=== PATIENT | male | born 1975 | race Two or more races ===

== ENCOUNTER 2016-07-16 16:25 | Inpatient (IN) | payer OTHER ==
[2016-07-16 17:21] VITALS: BMI 25.7
--- NOTE | 2016-07-16 18:00 | HP ---
[id number] 4d 4-Moderate,w/Arms Extend Anxiety: 4-Mod. Anxious/Guarded Agitation: 4-Moderately Restless Paroxysmal Sweats: 2 Orientation: 1-Uncertain about Date Tacttile Disturbances: 0-None Auditory Disturbances: 0-None Visual Disturbances: 0-None Headache: 1-Very Mild CIWA-Ar Total Score: 17 Admission ROS BHS - HPI Chief Complaint: withdrawal sx Allergies/Adverse Reactions: Allergies Allergy/AdvReac Type Severity Reaction Status Date / Time No Known Drug Allergies Allergy Verified 07/16/16 19:24 PICKLES Allergy Severe Hives Uncoded 07/16/16 18:44 History of Present Illness: 40 years old male with long history of alcohol cocaine marijuana nicotine dependence has hiv and positive ppd and history of anemia, has depression is admitted to detox Exam Limitations: No Limitations - Ebola screening Have you traveled outside of the country in the last 21 days: No Have you had contact with anyone from an Ebola affected area: No Have you been sick,other than usual withdrawal symptoms: No Do you have a fever: No - Review of Systems Constitutional: Chills, Loss of Appetite, Changes in sleep, Unintentional Wgt. Loss, Unexplained wgt Loss EENT: reports: No Symptoms Reported Respiratory: reports: No Symptoms reported Cardiac: reports: No Symptoms Reported GI: reports: Nausea, Poor Appetite, Poor Fluid Intake, Abdominal cramping : reports: No Symptoms Reported Musculoskeletal: reports: Back Pain, Joint Pain, Muscle Pain, Neck Pain Integumentary: reports: No Symptoms Reported Neuro: reports: Tremors Endocrine: reports: No Symptoms Reported Hematology: reports: Anemia Psychiatric: reports: Judgement Intact, Depressed Other Systems: Reviewed and Negative Patient History - Patient Medical History Hx Anemia: Yes (lab pending) Hx Asthma: No Hx Chronic Obstructive Pulmonary Disease (COPD): No Hx Cancer: No Hx Cardiac Disorders: No Hx Congestive Heart Failure: No Hx Hypertension: No Hx Hypercholesterolemia: No Hx Pacemaker: No HX Cerebrovascular Accident: No Hx Seizures: No Hx Dementia: No Hx Diabetes: No Hx Gastrointestinal Disorders: No Hx Liver Disease: No Hx Genitourinary Disorders: No Hx Sexually Transmitted Disorders: No Hx Renal Disease (ESRD): No Hx Thyroid Disease: No Hx Human Immunodeficiency Virus (HIV): Yes Hx Hepatitis C: No Hx Depression: Yes Hx Suicide Attempt: No Hx Bipolar Disorder: No Hx Schizophrenia: No - Patient Surgical History Past Surgical History: No - PPD History Previous Implant?: Yes Documented Results: Positive w/o proof Implanted On Prior [facility] Admission?: No PPD to be Administered?: No - Smoking Cessation Smoking history: Current every day smoker Have you smoked in the past 12 months: Yes Aproximately how many cigarettes per day: 15 Cigars Per Day: 0 Hx Chewing Tobacco Use: No Initiated information on smoking cessation: Yes 'Breaking Loose' booklet given: 07/16/16 - Substance & Tx. History Hx Alcohol Use: Yes Hx Substance Use: Yes Substance Use Type: Alcohol, Marijuana Hx Substance Use Treatment: Yes - Substances Abused Alcohol Route: Oral Frequency: Daily Amount used: Shoppilot Age of first use: 15 Date of Last Use: 07/16/16 Family Disease History - Family Disease History Family Disease History: CA: Father (), Other: Father Admission Physical Exam BHS - Vital Signs Vital Signs: Vital Signs - 24 hr 07/16/16 17:17 Temperature 97.9 F Pulse Rate 96 H Respiratory 20 Rate Blood Pressure 122/70 - Physical General Appearance: Yes: Appropriately Dressed, Moderate Distress, Thin, Tremorous, Irritable, Sweating, Anxious HEENTM: Yes: Hearing grossly Normal, Normal ENT Inspection, Normocephalic, Normal Voice Respiratory: Yes: Chest Non-Tender, Lungs Clear, Normal Breath Sounds, No Respiratory Distress, No Accessory Muscle Use Neck: Yes: Supple, Trachea in good position Breast: Yes: Breasts Symetrical Cardiology: Yes: Regular Rhythm, S1, S2, Tachycardia Abdominal: Yes: Non Tender, Soft Genitourinary: Yes: Within Normal Limits Back: Yes: Normal Inspection Musculoskeletal: Yes: full range of Motion, Gait Steady, Back pain Extremities: Yes: Normal Inspection, Normal Range of Motion, Non-Tender, Tremors Neurological: Yes: Alert, Motor Strength 5/5, Normal Response, Depressed Affect Integumentary: Yes: Warm Lymphatic: Yes: Within Normal Limits - Diagnostic (1) Alcohol dependence with uncomplicated withdrawal Current Visit: Yes Status: Acute (2) HIV (human immunodeficiency virus infection) Current Visit: Yes Status: Chronic Comment: family will bring in medication as soon as possible, last dose 07/16/16 (3) Positive PPD, treated Current Visit: Yes Status: Resolved (4) Nicotine dependence Current Visit: Yes Status: Acute Qualifiers: Nicotine product type: cigarettes Substance use status: in withdrawal Qualified Code(s): F17.213 - Nicotine dependence, cigarettes, with withdrawal (5) Weight loss Current Visit: Yes Status: Acute Cleared for Admission [facility] - Detox or Rehab [facility] Level of Care: Medically Managed Detox Regimen/Protocol: Librium [facility] Breath Alcohol Content Breath Alcohol Content: 0 Urine Drug Screen - Results Drug Screen Negative: No Urine Drug Screen Results: THC-Marijuana, BRITTANEY-Cocaine
[2016-07-16] MEDS ORDERED: MAGNESIUM HYDROX 2400MG/30ML ORAL SUSPENSION 30 ML CUP PO PRN (18:05)
[2016-07-16] MEDS ORDERED: chlordiazePOXIDE HCL 25 MG CAPSULE PO ONE (18:05)
[2016-07-16] MEDS ORDERED: MENTHOL/PHENOL 1 EACH UD MM PRN (18:05)
[2016-07-16] MEDS ORDERED: LOPERAMIDE HCL 2 MG CAPSULE PO PRN (18:05)
[2016-07-16] MEDS ORDERED: ACETAMINOPHEN 325 MG TABLET (FP) PO PRN (18:05)
[2016-07-16] MEDS ORDERED: MAGNESIUM CITRATE 300 ML BOTTLE PO PRN (18:05)
[2016-07-16] MEDS ORDERED: MAG HYDROX/AL HYDROX/SIMETH 30 ML UNIT-DOSE CUP PO PRN (18:05)
[2016-07-16] MEDS ORDERED: diphenhydrAMINE HCL 50 MG CAPSULE PO PRN (18:05)
[2016-07-16] MEDS ORDERED: IBUPROFEN 400 MG TABLET (FP) PO PRN (18:05)
[2016-07-16] MEDS ORDERED: chlordiazePOXIDE HCL 25 MG CAPSULE PO PRN (18:05)
[2016-07-16] MEDS ORDERED: P-EPHED 60MG/TRIPROLIDI 2.5MG TABLET PO PRN (18:05)
[2016-07-16] MEDS: THIAMINE HCL 100 MG TABLET (FP) PO SCH (22:41)
[2016-07-16] MEDS: chlordiazePOXIDE HCL 25 MG CAPSULE PO SCH (22:41)
[2016-07-17] MEDS: chlordiazePOXIDE HCL 25 MG CAPSULE PO SCH ×4 (07:24→22:41)
--- NOTE | 2016-07-17 10:14 | CONSULT ---
[facility] Psychiatric Consult - Data Date of interview: 07/17/16 Admission source: [facility] Identifying data: This is 40 years old male with psychiatric hospitalization history biontoxicate dwith: Alcohol and Nicotine Substance Abuse History: - Smoking Cessation. Smoking history: Current every day smoker. Have you smoked in the past 12 months: Yes. Aproximately how many cigarettes per day: 15. Cigars Per Day: 0. Hx Chewing Tobacco Use: No. Initiated information on smoking cessation: Yes. 'Breaking Loose' booklet given : 07/16/16. - Substance & Tx. History. Hx Alcohol Use: Yes. Hx Substance Use : Yes. Substance Use Type: Alcohol, Marijuana. Hx Substance Use Treatment: Yes. - Substances Abused. Alcohol. Route: Oral. Frequency: Daily. Amount used: gallon rum. Age of first use: 15. Date of Last Use: 07/16/16 Medical History: Weight loss history, HIV Psychiatric History: Patient reprots history of depression and IOnsoknia, reprotws taking prior to admission: Ambien 10mmg po qhs with good response Physical/Sexual Abuse/Trauma History: Denies Additional Comment: Ambien 10mmg po qhs Mental Status Exam - Mental Status Exam Alert and Oriented to: Person Cognitive Function: Fair Patient Appearance: Unkempt Mood: Anxious Affect: Mood Congruent Patient Behavior: Cooperative Speech Pattern: Appropriate Voice Loudness: Mildly Soft/Quiet Thought Process: Circumstantial Thought Disorder: Being Controlled Hallucinations: Denies Suicidal Ideation: Denies Homicidal Ideation: Denies Insight/Judgement: Fair Sleep: Difficulty falling asleep Appetite: Weight loss Muscle strength/Tone: Mild Hypotonicity Gait/Station: Shuffling Additional Comments: Ambien 10mmg po qhs Psychiatric Findings - Problem List ([place] 1, 2,3) (1) Alcohol dependence with uncomplicated withdrawal Current Visit: Yes Status: Acute (2) Nicotine dependence Current Visit: Yes Status: Acute Qualifiers: Nicotine product type: cigarettes Substance use status: in withdrawal Qualified Code(s): F17.213 - Nicotine dependence, cigarettes, with withdrawal (3) Drug-induced mood disorder Current Visit: Yes Status: Acute (4) Alcohol induced insomnia Current Visit: Yes Status: Acute - Initial Treatment Plan Initial Treatment Plan: Ambien 10mmg po qhs
[2016-07-17] MEDS: PRENATAL VITAMINS W/ FOLIC ACID TABLET (FP) PO SCH (10:23)
[2016-07-17] MEDS: NICOTINE 21 MG/24 HOURS TOPICAL PATCH TD SCH (10:24)
[2016-07-17 10:32] LABS: MCH 31.5 pg (25.7-33.7); MCHC 33.5 g/dl (32.0-35.9); MEAN PLT VOLUME 9.1 fl (7.5-11.1); PLATELET COUNT 210 K/MM3 (134-434); RDW 13.1 % (11.9-15.9); WHITE BLOOD COUNT 7.6 K/mm3 (4.0-10.0)
[2016-07-17 10:48] LABS: ALBUMIN 3.6 g/dl (3.4-5.0); ALK PHOS 104 U/L (45-117); ANION GAP 10 (8-16); BILIRUBIN,TOTAL 0.5 mg/dL (0.2-1.0); CALCIUM 9.7 mg/dL (8.5-10.1); CO2 29 mmol/L (21-32); COCKROFT - GAULT 102.37; CREATININE 1.2 mg/dL (0.7-1.3); GLUCOSE,RANDOM 95 mg/dL (74-106); SGOT/AST 21 U/L (15-37); SGPT/ALT 22 U/L (12-78); TOT PROT 7.4 g/dl (6.4-8.2)
[2016-07-17] MEDS ORDERED: LIDOCAINE 5% TOPICAL PATCH TP ONE (11:28)
[2016-07-17] MEDS: guaiFENesin/D-METHORPHAN HB 10 ML UNIT-DOSE CUPS PO PRN ×2 (11:36→23:17)
[2016-07-17] MEDS: NICOTINE POLACRILEX 4 MG GUM BC PRN ×2 (12:19→23:26)
--- NOTE | 2016-07-17 13:03 | PN ---
S CIWA - CIWA Score Nausea/Vomitin Muscle Tremors: 2 Anxiety: 2 Agitation: 3 Paroxysmal Sweats: 2 Orientation: 0-Oriented Tacttile Disturbances: 1-Very Mild Itch/Numbness Auditory Disturbances: 0-None Visual Disturbances: 0-None Headache: 0-None Present CIWA-Ar Total Score: 12 BHS Progress Note (SOAP) Subjective: restless, anxious, night sweats, lbp, but better Objective: 07/17/16 13:01 Vital Signs Temp 97.9 F 07/17/16 09:40 Pulse 94 H 07/17/16 09:40 Resp 16 07/17/16 09:40 BP 130/70 07/17/16 09:40 Pulse Ox Intake & Output 07/16/16 07/17/16 07/17/16 23:59 11:59 23:59 Weight 195 lb Other: Height 6 ft 1 in Body Mass Index (BMI) 25.7 Weight Measurement Method Standing Scale Laboratory Tests 07/17/16 07/17/16 07/17/16 07:00 07:00 07:00 WBC 7.6 D RBC 4.93 Hgb 15.5 D Hct 46.3 MCV 94.0 MCHC 33.5 RDW 13.1 D Plt Count 210 D MPV 9.1 D Sodium 141 Potassium 4.1 Chloride 102 Carbon Dioxide 29 D Anion Gap 10 BUN 13 Creatinine 1.2 D Creat Clearance w eGFR > 60 Random Glucose 95 D Calcium 9.7 Total Bilirubin 0.5 D AST 21 D ALT 22 D Alkaline Phosphatase 104 Total Protein 7.4 Albumin 3.6 RPR Titer Nonreactive pt aox3 ambulating mildly restless. Assessment: 07/17/16 13:02 withdrawal sx;s lbp 07/17/16 13:03 Plan: cont. detox increase fluids lidocaine patch
--- NOTE | 2016-07-17 13:23 | EKG ---
Test Reason : Blood Pressure : / mmHG Vent. Rate : 086 BPM Atrial Rate : 086 BPM P-R Int : 156 ms QRS Dur : 090 ms QT Int : 334 ms P-R-T Axes : 064 069 004 degrees QTc Int : 399 ms NORMAL SINUS RHYTHM POSSIBLE LEFT ATRIAL ENLARGEMENT LEFT VENTRICULAR HYPERTROPHY NONSPECIFIC T WAVE ABNORMALITY ABNORMAL ECG NO PREVIOUS ECGS AVAILABLE Confirmed by NIKKI RAMIREZ MD ([id number]) on 07/17/2016 1:22:52 PM Referred By: Confirmed By:NIKKI RAMIREZ MD
[2016-07-17 16:35] LABS: URINE APPEARANCE CLEAR; URINE BILIRUBIN NEGATIVE (NEGATIVE); URINE BLOOD NEGATIVE (NEGATIVE); URINE COLOR YELLOW; URINE GLUCOSE (UA) NEGATIVE (NEGATIVE); URINE KETONE NEGATIVE (NEGATIVE); URINE LEUK ESTERASE NEGATIVE (NEGATIVE); URINE NITRITE NEGATIVE (NEGATIVE); URINE UROBILINOGEN NEGATIVE E.U./dl (0.2-1.0)
[2016-07-17 16:59] LABS: URINE PROTEIN 1+ (NEGATIVE)
[2016-07-17 17:11] LABS: URINE MUCUS RARE; URINE RBC 1 /hpf (0-3); URINE WBC 1 /hpf (3-5)
[2016-07-17] MEDS: ZOLPIDEM TARTRATE 10 MG TABLET (PARK CARE ONLY) PO PRN (22:41)
[2016-07-17] MEDS: THIAMINE HCL 100 MG TABLET (FP) PO SCH (22:41)
[2016-07-18] MEDS: chlordiazePOXIDE HCL 25 MG CAPSULE PO SCH ×3 (05:52→17:44)
[2016-07-18] MEDS: guaiFENesin/D-METHORPHAN HB 10 ML UNIT-DOSE CUPS PO PRN (09:08)
[2016-07-18] MEDS: PRENATAL VITAMINS W/ FOLIC ACID TABLET (FP) PO SCH (10:30)
[2016-07-18] MEDS: LIDOCAINE 5% TOPICAL PATCH TP SCH (10:31)
[2016-07-18] MEDS: NICOTINE 21 MG/24 HOURS TOPICAL PATCH TD SCH (10:31)
--- NOTE | 2016-07-18 11:05 | PN ---
S CIWA - CIWA Score Nausea/Vomitin-No Nausea/No Vomiting Muscle Tremors: 3 Anxiety: 2 Agitation: 2 Paroxysmal Sweats: 2 Orientation: 0-Oriented Tacttile Disturbances: 0-None Auditory Disturbances: 0-None Visual Disturbances: 0-None Headache: 0-None Present CIWA-Ar Total Score: 9 BHS Progress Note (SOAP) Subjective: little anxious feeling better Objective: 07/18/16 11:04 Vital Signs Temperature 97.6 F 07/18/16 09:27 Pulse Rate 96 H 07/18/16 09:27 Respiratory Rate 20 07/18/16 09:27 Blood Pressure 112/59 07/18/16 09:27 O2 Sat by Pulse Oximetry (%) Laboratory Tests 07/16/16 07/17/16 07/17/16 07:00 07:00 07:00 WBC 7.6 D RBC 4.93 Hgb 15.5 D Hct 46.3 MCV 94.0 MCHC 33.5 RDW 13.1 D Plt Count 210 D MPV 9.1 D Sodium 141 Potassium 4.1 Chloride 102 Carbon Dioxide 29 D Anion Gap 10 BUN 13 Creatinine 1.2 D Creat Clearance w eGFR > 60 Random Glucose 95 D Calcium 9.7 Total Bilirubin 0.5 D AST 21 D ALT 22 D Alkaline Phosphatase 104 Total Protein 7.4 Albumin 3.6 Urine Color Urine Appearance Urine pH Ur Specific [place] Urine Protein Urine Glucose (UA) Urine Ketones Urine Blood Urine Nitrite Urine Bilirubin Urine Urobilinogen Ur Leukocyte Esterase Urine RBC Urine WBC Urine Mucus RPR Titer Hepatitis C Antibody <0.1 07/17/16 07/17/16 07:00 15:57 WBC RBC Hgb Hct MCV MCHC RDW Plt Count MPV Sodium Potassium Chloride Carbon Dioxide Anion Gap BUN Creatinine Creat Clearance w eGFR Random Glucose Calcium Total Bilirubin AST ALT Alkaline Phosphatase Total Protein Albumin Urine Color Yellow Urine Appearance Clear Urine pH 6.0 Ur Specific [place] 1.025 Urine Protein 1+ H Urine Glucose (UA) Negative Urine Ketones Negative Urine Blood Negative Urine Nitrite Negative Urine Bilirubin Negative Urine Urobilinogen Negative Ur Leukocyte Esterase Negative Urine RBC 1 Urine WBC 1 Urine Mucus Rare RPR Titer Nonreactive Hepatitis C Antibody awake/alert ambulating no acute distress Assessment: 07/18/16 11:04 withdrawal sx Plan: continue detox increase fluids
[2016-07-18] MEDS: hydrOXYzine PAMOATE 50 MG CAPSULE (FP) PO PRN ×2 (13:44→17:44)
[2016-07-18] MEDS: chlordiazePOXIDE 5 MG CAPSULE PO SCH (22:43)
[2016-07-18] MEDS: THIAMINE HCL 100 MG TABLET (FP) PO SCH (22:43)
[2016-07-18] MEDS: ZOLPIDEM TARTRATE 10 MG TABLET (PARK CARE ONLY) PO PRN (22:44)
[2016-07-19] MEDS: chlordiazePOXIDE 5 MG CAPSULE PO SCH ×3 (05:49→17:19)
[2016-07-19] MEDS: guaiFENesin/D-METHORPHAN HB 10 ML UNIT-DOSE CUPS PO PRN ×2 (05:51→17:21)
--- NOTE | 2016-07-19 09:33 | PN ---
S Progress Note (SOAP) Subjective: ALERT,IRRITABLE,ANXIOUS,INTERRUPTED SLEEP Objective: 07/19/16 09:32 Vital Signs Temperature 97.8 F 07/19/16 06:29 Pulse Rate 76 07/19/16 06:29 Respiratory Rate 18 07/19/16 06:29 Blood Pressure 132/79 07/19/16 06:29 O2 Sat by Pulse Oximetry (%) Assessment: 07/19/16 09:32 WITHDRAWAL SYMPTOM Plan: CONTINUE DETOX,DISCHARGE IN AM
[2016-07-19] MEDS: LIDOCAINE 5% TOPICAL PATCH TP SCH (10:33)
[2016-07-19] MEDS: PRENATAL VITAMINS W/ FOLIC ACID TABLET (FP) PO SCH (10:33)
[2016-07-19] MEDS: RITONAVIR 100 MG TABLET PO SCH (10:34)
[2016-07-19] MEDS: NICOTINE 21 MG/24 HOURS TOPICAL PATCH TD SCH (10:34)
[2016-07-19] MEDS: DARUNAVIR ETHANOLATE 600 MG TAB PO SCH (10:35)
[2016-07-19] MEDS: EMTRICITABINE 200MG/TENOFOVIR 300MG PO SCH (10:35)
[2016-07-19] MEDS: THIAMINE HCL 100 MG TABLET (FP) PO SCH (22:38)
[2016-07-19] MEDS: ZOLPIDEM TARTRATE 10 MG TABLET (PARK CARE ONLY) PO PRN (22:38)
[2016-07-19] MEDS: chlordiazePOXIDE HCL 10 MG CAPSULE PO SCH (22:38)
[2016-07-20] MEDS: chlordiazePOXIDE HCL 10 MG CAPSULE PO SCH (05:26)
[2016-07-20] MEDS: guaiFENesin/D-METHORPHAN HB 10 ML UNIT-DOSE CUPS PO PRN ×2 (05:27→07:43)
[2016-07-20] MEDS: EMTRICITABINE 200MG/TENOFOVIR 300MG PO SCH (07:42)
[2016-07-20] MEDS: DARUNAVIR ETHANOLATE 600 MG TAB PO SCH (07:42)
[2016-07-20] MEDS: RITONAVIR 100 MG TABLET PO SCH (07:42)
[2016-07-20 10:33] VITALS: BP 126/63; PULSE 104; TEMP 97.2
--- NOTE | 2016-07-20 15:10 | DS ---
[facility] Detox Discharge Summary Admission Date: 07/16/16 Discharge Date: 07/20/16 - History Present History: Alcohol Dependence Pertinent Past History: HIV positive - Physical Exam Results Vital Signs: Vital Signs Temperature 97.2 F L 07/20/16 10:33 Pulse Rate 104 H 07/20/16 10:33 Respiratory Rate 20 07/20/16 10:33 Blood Pressure 126/63 07/20/16 10:33 O2 Sat by Pulse Oximetry (%) Pertinent Admission Physical Exam Findings: withdrawal sx Laboratory Last Values WBC 7.6 K/mm3 (4.0-10.0) D 07/17/16 07:00 RBC 4.93 M/mm3 (4.00-5.60) 07/17/16 07:00 Hgb 15.5 GM/dL (11.7-16.9) D 07/17/16 07:00 Hct 46.3 % (35.4-49) 07/17/16 07:00 MCV 94.0 fl (80-96) 07/17/16 07:00 MCHC 33.5 g/dl (32.0-35.9) 07/17/16 07:00 RDW 13.1 % (11.9-15.9) D 07/17/16 07:00 Plt Count 210 K/MM3 (134-434) D 07/17/16 07:00 MPV 9.1 fl (7.5-11.1) D 07/17/16 07:00 Sodium 141 mmol/L (136-145) 07/17/16 07:00 Potassium 4.1 mmol/L (3.5-5.1) 07/17/16 07:00 Chloride 102 mmol/L (98-107) 07/17/16 07:00 Carbon Dioxide 29 mmol/L (21-32) D 07/17/16 07:00 Anion Gap 10 (8-16) 07/17/16 07:00 BUN 13 mg/dL (7-18) 07/17/16 07:00 Creatinine 1.2 mg/dL (0.7-1.3) D 07/17/16 07:00 Creat Clearance w eGFR > 60 (>60) 07/17/16 07:00 Random Glucose 95 mg/dL (74-106) D 07/17/16 07:00 Calcium 9.7 mg/dL (8.5-10.1) 07/17/16 07:00 Total Bilirubin 0.5 mg/dL (0.2-1.0) D 07/17/16 07:00 AST 21 U/L (15-37) D 07/17/16 07:00 ALT 22 U/L (12-78) D 07/17/16 07:00 Alkaline Phosphatase 104 U/L (45-117) 07/17/16 07:00 Total Protein 7.4 g/dl (6.4-8.2) 07/17/16 07:00 Albumin 3.6 g/dl (3.4-5.0) 07/17/16 07:00 Urine Color Yellow 07/17/16 15:57 Urine Appearance Clear 07/17/16 15:57 Urine pH 6.0 (5.0-8.0) 07/17/16 15:57 Ur Specific [place] 1.025 (1.001-1.035) 07/17/16 15:57 Urine Protein 1+ (NEGATIVE) H 07/17/16 15:57 Urine Glucose (UA) Negative (NEGATIVE) 07/17/16 15:57 Urine Ketones Negative (NEGATIVE) 07/17/16 15:57 Urine Blood Negative (NEGATIVE) 07/17/16 15:57 Urine Nitrite Negative (NEGATIVE) 07/17/16 15:57 Urine Bilirubin Negative (NEGATIVE) 07/17/16 15:57 Urine Urobilinogen Negative E.U./dl (0.2-1.0) 07/17/16 15:57 Ur Leukocyte Esterase Negative (NEGATIVE) 07/17/16 15:57 Urine RBC 1 /hpf (0-3) 07/17/16 15:57 Urine WBC 1 /hpf (3-5) 07/17/16 15:57 Urine Mucus Rare 07/17/16 15:57 RPR Titer Nonreactive (NONREACTIVE) 07/17/16 07:00 Hepatitis C Antibody <0.1 s/co ratio (0.0-0.9) 07/16/16 07:00 Labs noted - Treatment Hospital Course: Detox Protocol Followed, Detoxed Safely, Responded well, Discharged Condition Good - Medication Discharge Medications: Ambulatory Orders Darunavir Ethanolate [Prezista -] 600 mg PO DAILY 07/16/16 Emtricitabine/Tenofovir [Truvada] 1 tab PO DAILY 07/16/16 Ritonavir [Norvir -] 100 mg PO DAILY 07/16/16 Zolpidem Tartrate [Ambien] 10 mg PO HS 07/16/16 - Diagnosis (1) Alcohol dependence with uncomplicated withdrawal Status: Acute (2) Alcohol induced insomnia Status: Acute (3) Drug-induced mood disorder Status: Acute (4) Nicotine dependence Status: Acute Qualifiers: Nicotine product type: cigarettes Substance use status: in withdrawal Qualified Code(s): F17.213 - Nicotine dependence, cigarettes, with withdrawal (5) HIV (human immunodeficiency virus infection) Status: Chronic - AMA Did Patient Leave Against Medical Advice: No
== END 2016-07-20 09:20 | disposition home or self-care (01) | DRG 775 ==
LOC: YASAS 16:25 → Y6N 19:01
PROVIDERS: ADMIT Internal Medicine Addiction Medicine; ATTEND Internal Medicine Addiction Medicine
PROC: HZ2ZZZZ Detoxification Services for Substance Abuse Treatment (ICD-10-PCS; principal; 2016-07-20)
DX: F10.230 Alcohol dependence with withdrawal, uncomplicated (principal); F17.213 Nicotine dependence, cigarettes, with withdrawal; F10.282 Alcohol dependence with alcohol-induced sleep disorder; F19.24 Other psychoactive substance dependence with psychoactive substance-induced mood disorder; Z21 Asymptomatic human immunodeficiency virus [HIV] infection status; R76.11 Nonspecific reaction to tuberculin skin test without active tuberculosis; R63.4 Abnormal weight loss; Z68.25 Body mass index [BMI] 25.0-25.9, adult
CPT/HCPCS: 36415; 71020-TC; 80053; 81003; 81015; 85027; 86593; 93005; 93010

== ENCOUNTER 2016-12-28 11:31 | Inpatient (IN) | payer OTHER ==
[2016-12-28 11:52] VITALS: BMI 27.1
--- NOTE | 2016-12-28 13:46 | HP ---
CIWA Score - CIWA Score Nausea/Vomitin Muscle Tremors: 4-Moderate,w/Arms Extend Anxiety: 4-Mod. Anxious/Guarded Agitation: 4-Moderately Restless Paroxysmal Sweats: 3 Orientation: 0-Oriented Tacttile Disturbances: 2-Mild Itch/Numbness/Burn Auditory Disturbances: 0-None Visual Disturbances: 0-None Headache: 3-Moderate CIWA-Ar Total Score: 23 Admission ROS BHS - HPI Chief Complaint: alcohol withdrawal sx Allergies/Adverse Reactions: Allergies Allergy/AdvReac Type Severity Reaction Status Date / Time No Known Drug Allergies Allergy Verified 12/28/16 12:57 PICKLES Allergy Severe Hives Uncoded 12/28/16 12:57 History of Present Illness: 41 yo m with h/o chronic alcoholism, cocaine, nicotine and cannbis dependence admitted for alcohol deotx after several admissions previousl at [facility] recently started drinking again after in the family and it was his bday yesterday so decided to come in for treatment. PMHX HIV+, on meds, took them today but did not bring them with him, has that at home for when he is discharged will not need a prescription no one can bring them, peripheral neuropathy, depresiion, insomnai, anxiety and sleep apnoea. no h/o seizures, DTs. no suicide attmpst, no suicidal ideation Exam Limitations: No Limitations - Ebola screening Have you traveled outside of the country in the last 21 days: No Have you been sick,other than usual withdrawal symptoms: No Do you have a fever: No - Review of Systems Constitutional: Chills, Diaphoresis, Loss of Appetite, Malaise, Night Sweats, Unintentional Wgt. Loss EENT: reports: No Symptoms Reported Respiratory: reports: No Symptoms reported Cardiac: reports: No Symptoms Reported GI: reports: Diarrhea, Nausea, Poor Appetite, Poor Fluid Intake, Indigestion, Abdominal cramping : reports: No Symptoms Reported Musculoskeletal: reports: Back Pain (s/p pneumonia many years ago, had a midically induced coma) Integumentary: reports: Flushing, Sweating Neuro: reports: Headache, Numbness, Paresthesia, Tingling, Tremors, Weakness Endocrine: reports: No Symptoms Reported Hematology: reports: No Symptoms Reported Psychiatric: reports: Judgement Intact, Mood/Affect Appropiate, Orientated x3, Anxious, Depressed Other Systems: Reviewed and Negative Patient History - Patient Medical History Hx Anemia: Yes (lab pending) Hx Asthma: No Hx Chronic Obstructive Pulmonary Disease (COPD): No Hx Cancer: No Hx Cardiac Disorders: No Hx Congestive Heart Failure: No Hx Hypertension: No Hx Hypercholesterolemia: No Hx Pacemaker: No HX Cerebrovascular Accident: No Hx Seizures: No Hx Dementia: No Hx Diabetes: No Hx Gastrointestinal Disorders: No Hx Liver Disease: No Hx Genitourinary Disorders: No Hx Sexually Transmitted Disorders: No Hx Renal Disease (ESRD): No Hx Thyroid Disease: No Hx Human Immunodeficiency Virus (HIV): Yes Hx Hepatitis C: No Hx Depression: No Hx Suicide Attempt: No Hx Bipolar Disorder: No Hx Schizophrenia: No - Patient Surgical History Past Surgical History: No Hx Neurologic Surgery: No Hx Cataract Extraction: No Hx Cardiac Surgery: No Hx Lung Surgery: No Hx Breast Surgery: No Hx Breast Biopsy: No Hx Abdominal Surgery: No Hx Appendectomy: No Hx Cholecystectomy: No Hx Genitourinary Surgery: No Hx Section: No Hx Orthopedic Surgery: No Hx Hysterectomy: No Anesthesia Reaction: No - PPD History Previous Implant?: Yes Documented Results: Positive w/o proof Implanted On Prior [facility] Admission?: No PPD to be Administered?: No - Reproductive History Patient is a Female of Child Bearing Age (11 -55 yrs old): No Patient : No - Smoking Cessation Smoking history: Current every day smoker Have you smoked in the past 12 months: Yes Aproximately how many cigarettes per day: 10 Cigars Per Day: 0 Hx Chewing Tobacco Use: No Initiated information on smoking cessation: Yes 'Breaking Loose' booklet given: 12/28/16 - Substance & Tx. History Hx Alcohol Use: Yes Hx Substance Use: Yes Substance Use Type: Alcohol, Cocaine, Marijuana, Prescribed Hx Substance Use Treatment: Yes - Substances Abused Alcohol Route: Oral Frequency: Daily Amount used: RUM(1 LITER)/BEER 6 PK 12 OZ BOTTLES Age of first use: 14 Date of Last Use: 12/28/16 Cocaine Route: Inhalation Frequency: Daily Amount used: $50-60 Age of first use: 17 Date of Last Use: 12/27/16 Marijuana/Hashish Route: Smoking Frequency: Daily Amount used: $20 Age of first use: 14 Date of Last Use: 12/27/16 Family Disease History - Family Disease History Family Disease History: CA: Father (, alcoholic ca liver), Other: Father Admission Physical Exam BHS - Vital Signs Vital Signs: Vital Signs - 24 hr 12/28/16 11:50 Temperature 96.2 F L Pulse Rate 86 Respiratory 18 Rate Blood Pressure 159/87 - Physical General Appearance: Yes: Nourished, Appropriately Dressed, Disheveled, Mild Distress, Alcohol on Breath, Tremorous, Irritable, Sweating, Anxious HEENTM: Yes: EOMI, Hearing grossly Normal, Normal ENT Inspection, Normocephalic , Normal Voice, Pharynx Normal Respiratory: Yes: Within Normal Limits, Chest Non-Tender, Lungs Clear, Normal Breath Sounds, No Respiratory Distress, No Accessory Muscle Use Neck: Yes: Within Normal Limits, No masses,lesions,Nodules, Supple, Trachea in good position Breast: Yes: Breast Exam Deferred Cardiology: Yes: Within Normal Limits, Regular Rhythm, Regular Rate, S1, S2 Abdominal: Yes: Normal Bowel Sounds, Non Tender, Flat, Soft Genitourinary: Yes: Within Normal Limits Back: Yes: Normal Inspection, Decreased Range of Motion, Muscle Spasm, Vertebral Tenderness Musculoskeletal: Yes: full range of Motion, Gait Steady, Pelvis Stable Extremities: Yes: Within Normal Limits, Normal Capillary Refill, Normal Inspection Neurological: Yes: television cabinet finisher II-XII NML intact, Fully Oriented, Alert, Motor Strength 5/5, Normal Response, Depressed Affect Integumentary: Yes: Normal Color, Warm, Diaphoresis, Moist Lymphatic: Yes: Within Normal Limits - Addiitonal Findings: withdrawal sx - Diagnostic (1) Alcohol dependence with uncomplicated withdrawal Current Visit: Yes Status: Acute (2) Alcohol induced insomnia Current Visit: Yes Status: Acute (3) Drug-induced mood disorder Current Visit: Yes Status: Acute (4) Nicotine dependence Current Visit: Yes Status: Acute Qualifiers: Nicotine product type: cigarettes Substance use status: in withdrawal Qualified Code(s): F17.213 - Nicotine dependence, cigarettes, with withdrawal; F17.213 - Nicotine dependence, cigarettes, with withdrawal (5) Weight loss Current Visit: Yes Status: Acute (6) HIV (human immunodeficiency virus infection) Current Visit: Yes Status: Acute Comment: took today but no one can bring him meds this time (7) Peripheral neuropathy Current Visit: Yes Status: Acute (8) Chronic low back pain Current Visit: Yes Status: Acute Cleared for Admission [facility] - Detox or Rehab [facility] Level of Care: Medically Managed Detox Regimen/Protocol: Librium [facility] Breath Alcohol Content Breath Alcohol Content: 0.15 Urine Drug Screen - Results Drug Screen Negative: No Urine Drug Screen Results: THC-Marijuana, BRITTANEY-Cocaine
[2016-12-28] MEDS ORDERED: LOPERAMIDE HCL 2 MG CAPSULE PO PRN (13:49)
[2016-12-28] MEDS ORDERED: guaiFENesin/D-METHORPHAN HB 10 ML UNIT-DOSE CUPS PO PRN (13:49)
[2016-12-28] MEDS ORDERED: hydrOXYzine PAMOATE 50 MG CAPSULE (FP) PO PRN (13:49)
[2016-12-28] MEDS ORDERED: P-EPHED 60MG/TRIPROLIDI 2.5MG TABLET PO PRN (13:49)
[2016-12-28] MEDS ORDERED: diphenhydrAMINE HCL 50 MG CAPSULE PO PRN (13:49)
[2016-12-28] MEDS ORDERED: chlordiazePOXIDE HCL 25 MG CAPSULE PO PRN (13:49)
[2016-12-28] MEDS ORDERED: MENTHOL/PHENOL 1 EACH UD MM PRN (13:49)
[2016-12-28] MEDS ORDERED: NICOTINE POLACRILEX 2 MG GUM BUC PRN (13:49)
[2016-12-28] MEDS ORDERED: IBUPROFEN 400 MG TABLET (FP) PO PRN (13:49)
[2016-12-28] MEDS ORDERED: MAG HYDROX/AL HYDROX/SIMETH 30 ML UNIT-DOSE CUP PO PRN (13:49)
[2016-12-28] MEDS ORDERED: MAGNESIUM CITRATE 300 ML BOTTLE PO PRN (13:49)
[2016-12-28] MEDS ORDERED: MAGNESIUM HYDROX 2400MG/30ML ORAL SUSPENSION 30 ML CUP PO PRN (13:49)
[2016-12-28] MEDS ORDERED: chlordiazePOXIDE HCL 25 MG CAPSULE PO ONE (15:00)
[2016-12-28] MEDS: CYCLOBENZAPRINE HCL 10 MG TABLET (FP) PO SCH ×2 (15:06→22:34)
[2016-12-28] MEDS: GABAPENTIN 100 MG CAPSULE (FP) PO SCH ×2 (15:06→22:34)
[2016-12-28] MEDS: PANTOPRAZOLE 40 MG TABLET (FP) PO SCH (15:06)
[2016-12-28] MEDS: NICOTINE 14 MG/24 HOURS TOPICAL PATCH TD SCH (15:06)
[2016-12-28] MEDS: NAPROXEN 500 MG TABLET (FP) PO SCH ×2 (15:06→22:34)
[2016-12-28] MEDS: chlordiazePOXIDE HCL 25 MG CAPSULE PO SCH ×2 (17:29→22:34)
[2016-12-28 18:37] LABS: URINE APPEARANCE SLCLOUDY; URINE BILIRUBIN NEGATIVE (NEGATIVE); URINE BLOOD NEGATIVE (NEGATIVE); URINE COLOR AMBER; URINE GLUCOSE (UA) NEGATIVE (NEGATIVE); URINE KETONE NEGATIVE (NEGATIVE); URINE NITRITE NEGATIVE (NEGATIVE); URINE UROBILINOGEN NEGATIVE mg/dL (0.2-1.0)
[2016-12-28 18:52] LABS: URINE PROTEIN 2+ (NEGATIVE)
[2016-12-28 18:59] LABS: URINE MUCUS FEW; URINE RBC <1 /hpf (0-3); URINE WBC <1 /hpf (3-5)
[2016-12-28 21:05] LABS: URINE LEUK ESTERASE Negative (NEGATIVE)
[2016-12-28] MEDS ORDERED: PATIENT'S OWN MEDICATION (NON-FORMULARY) (Zolpidem Tartrate [Ambien] 10 MG) PO SCH (22:00)
[2016-12-28] MEDS ORDERED: ZOLPIDEM TARTRATE 10 MG TABLET (PARK CARE ONLY) PO SCH (22:00)
[2016-12-28] MEDS: ACETAMINOPHEN 325 MG TABLET (FP) PO PRN (22:35)
[2016-12-28] MEDS: THIAMINE HCL 100 MG TABLET (FP) PO SCH (22:37)
[2016-12-29] MEDS: ACETAMINOPHEN 325 MG TABLET (FP) PO PRN (05:44)
[2016-12-29] MEDS: chlordiazePOXIDE HCL 25 MG CAPSULE PO SCH ×4 (05:45→22:34)
[2016-12-29] MEDS: CYCLOBENZAPRINE HCL 10 MG TABLET (FP) PO SCH ×3 (05:45→22:34)
[2016-12-29] MEDS: GABAPENTIN 100 MG CAPSULE (FP) PO SCH ×3 (06:36→22:34)
--- NOTE | 2016-12-29 07:52 | CONSULT ---
[facility] Psychiatric Consult - Data Date of interview: 12/29/16 Admission source: Self-referred Identifying data: Mr Segovia is a 41 years old single male, unemployed on SSD(back problem), living with mother Substance Abuse History: Reports history of alcohol, cocaine and marijuana use. He started drinking and smoking marijuana at age 14, using cocaine at 17, consumes one liter of rum, a 6pk of beer, $50-60 worth of cocaine & $20 worth of marijuana daily. Last uses cocaine and smoked marijuana on 12/27/16 and drank alcohol on 12/28/16 Medical History: Significant for Anemia, HIV+, Peripheral Neuropathy, +PPD, Herniated Disc. Smokes 10 cigarettes Psychiatric History: Reports that in the early , he saw a psychiatrist at [facility] once and was prescribed Valium. Claims that he mised subsequent appointment [place]. Denies history of previous psychiatric hospitalization or suicudal attempt. at present, reports feeling mildly depressed and experiencing difficulty to sleep. Requests to be ordered Ambien to which he responded well in the past. Physical/Sexual Abuse/Trauma History: Denies history of verbal, physical of sexual abuse as well as DV relationship. No service Additional Comment: Reports history of 3-4 previous misdemeanor arrests on charges og possession of marijuation. Denies being on probation currently Mental Status Exam - Mental Status Exam Alert and Oriented to: Time, Place, Person Cognitive Function: Fair Patient Appearance: Well Groomed Mood: Depressed (mildly) Affect: Appropriate Patient Behavior: Cooperative Speech Pattern: Clear Voice Loudness: Normal Thought Process: Intact, Goal Oriented Hallucinations: Denies Suicidal Ideation: Denies Homicidal Ideation: Denies Insight/Judgement: Poor Sleep: Poorly Appetite: Good Muscle strength/Tone: Normal Gait/Station: Normal Psychiatric Findings - Problem List ([place] 1, 2,3) (1) Substance induced mood disorder Current Visit: Yes Status: Acute (2) Substance-induced sleep disorder Current Visit: Yes Status: Acute (3) Alcohol dependence with uncomplicated withdrawal Current Visit: Yes Status: Acute (4) Cocaine dependence Current Visit: Yes Status: Acute (5) Cannabis dependence Current Visit: Yes Status: Acute (6) Nicotine dependence Current Visit: Yes Status: Acute Qualifiers: Nicotine product type: cigarettes Substance use status: in withdrawal Qualified Code(s): F17.213 - Nicotine dependence, cigarettes, with withdrawal; F17.213 - Nicotine dependence, cigarettes, with withdrawal (7) HIV (human immunodeficiency virus infection) Current Visit: Yes Status: Acute Comment: took today but no one can bring him meds this time (8) Peripheral neuropathy Current Visit: Yes Status: Acute - Initial Treatment Plan Initial Treatment Plan: 1) Start Ambien 10 mg po HS prn for insomnia. 2) Continue inpatient detoxification
[2016-12-29] MEDS: PANTOPRAZOLE 40 MG TABLET (FP) PO SCH (10:31)
[2016-12-29] MEDS: NAPROXEN 500 MG TABLET (FP) PO SCH ×2 (10:31→22:34)
[2016-12-29] MEDS: PRENATAL VITAMINS W/ FOLIC ACID TABLET (FP) PO SCH (10:31)
[2016-12-29] MEDS: NICOTINE 14 MG/24 HOURS TOPICAL PATCH TD SCH (10:31)
[2016-12-29 11:30] LABS: MCH 30.8 pg (25.7-33.7); MCHC 32.4 g/dl (32.0-35.9); MEAN CELL VOLUME 95.1 fl (80-96); PLATELET COUNT 205 K/MM3 (134-434); RDW 12.8 % (11.9-15.9); WHITE BLOOD COUNT 6.7 K/mm3 (4.0-10.0)
--- NOTE | 2016-12-29 11:41 | EKG ---
Test Reason : Blood Pressure : / mmHG Vent. Rate : 074 BPM Atrial Rate : 074 BPM P-R Int : 148 ms QRS Dur : 090 ms QT Int : 400 ms P-R-T Axes : 033 064 027 degrees QTc Int : 444 ms NORMAL SINUS RHYTHM NORMAL ECG WHEN COMPARED WITH ECG OF 16-JUL-2016 19:02, NONSPECIFIC T WAVE ABNORMALITY NO LONGER EVIDENT IN ANTEROLATERAL LEADS Confirmed by CHEL VALENCIA MD ([id number]) on 12/29/2016 11:40:27 AM Referred By: Confirmed By:CHEL VALENCIA MD
[2016-12-29 11:52] LABS: ALBUMIN 3.4 g/dl (3.4-5.0); ALK PHOS 86 U/L (45-117); ANION GAP 9 (8-16); BILIRUBIN,TOTAL 0.6 mg/dL (0.2-1.0); CALCIUM 8.5 mg/dL (8.5-10.1); CO2 27 mmol/L (21-32); CREATININE 1.2 mg/dL (0.7-1.3); GLUCOSE,RANDOM 95 mg/dL (74-106); SGOT/AST 15 U/L (15-37); SGPT/ALT 21 U/L (12-78); TOT PROT 6.6 g/dl (6.4-8.2)
[2016-12-29] MEDS ORDERED: FLU VACCINE QUAD 60 MCG/0.5 ML (MDV 17-18) IM ONE ×2 (12:00→16:00)
[2016-12-29] MEDS: DARUNAVIR ETHANOLATE 600 MG TAB PO SCH (12:14)
[2016-12-29] MEDS: EMTRICITABINE 200MG/TENOFOVIR 300MG PO SCH (12:14)
[2016-12-29] MEDS: RITONAVIR 100 MG TABLET PO SCH (12:14)
--- NOTE | 2016-12-29 12:42 | PN ---
[facility] CIWA - CIWA Score Nausea/Vomitin-No Nausea/No Vomiting Muscle Tremors: 4-Moderate,w/Arms Extend Anxiety: 4-Mod. Anxious/Guarded Agitation: 4-Moderately Restless Paroxysmal Sweats: 1-Minimal Palms Moist Orientation: 0-Oriented Tacttile Disturbances: 3-Moderate Itch/Numb/Burn Auditory Disturbances: 0-None Visual Disturbances: 0-None Headache: 0-None Present CIWA-Ar Total Score: 16 BHS Progress Note (SOAP) Subjective: ANXIETY,SWEATS,DIARRHEA. Objective: 12/29/16 12:41 Vital Signs Temperature 96.8 F L 12/29/16 10:06 Pulse Rate 86 12/29/16 10:06 Respiratory Rate 20 12/29/16 10:06 Blood Pressure 119/63 12/29/16 10:06 O2 Sat by Pulse Oximetry (%) Laboratory Last Values WBC 6.7 K/mm3 (4.0-10.0) 12/29/16 07:45 RBC 4.81 M/mm3 (4.00-5.60) 12/29/16 07:45 Hgb 14.8 GM/dL (11.7-16.9) 12/29/16 07:45 Hct 45.7 % (35.4-49) 12/29/16 07:45 MCV 95.1 fl (80-96) 12/29/16 07:45 MCH 30.8 pg (25.7-33.7) 12/29/16 07:45 MCHC 32.4 g/dl (32.0-35.9) 12/29/16 07:45 RDW 12.8 % (11.9-15.9) 12/29/16 07:45 Plt Count 205 K/MM3 (134-434) 12/29/16 07:45 MPV 9.0 fl (7.5-11.1) 12/29/16 07:45 Sodium 141 mmol/L (136-145) 12/29/16 07:45 Potassium 3.6 mmol/L (3.5-5.1) 12/29/16 07:45 Chloride 105 mmol/L (98-107) 12/29/16 07:45 Carbon Dioxide 27 mmol/L (21-32) 12/29/16 07:45 Anion Gap 9 (8-16) 12/29/16 07:45 BUN 12 mg/dL (7-18) 12/29/16 07:45 Creatinine 1.2 mg/dL (0.7-1.3) 12/29/16 07:45 Creat Clearance w eGFR > 60 (>60) 12/29/16 07:45 Random Glucose 95 mg/dL (74-106) 12/29/16 07:45 Calcium 8.5 mg/dL (8.5-10.1) 12/29/16 07:45 Total Bilirubin 0.6 mg/dL (0.2-1.0) 12/29/16 07:45 AST 15 U/L (15-37) D 12/29/16 07:45 ALT 21 U/L (12-78) 12/29/16 07:45 Alkaline Phosphatase 86 U/L (45-117) 12/29/16 07:45 Total Protein 6.6 g/dl (6.4-8.2) 12/29/16 07:45 Albumin 3.4 g/dl (3.4-5.0) 12/29/16 07:45 Urine Color Caprice 12/28/16 09:49 Urine Appearance Slcloudy 12/28/16 09:49 Urine pH 5.0 (5.0-8.0) 12/28/16 09:49 Ur Specific [place] 1.020 (1.005-1.025) 12/28/16 09:49 Urine Protein 2+ (NEGATIVE) H 12/28/16 09:49 Urine Glucose (UA) Negative (NEGATIVE) 12/28/16 09:49 Urine Ketones Negative (NEGATIVE) 12/28/16 09:49 Urine Blood Negative (NEGATIVE) 12/28/16 09:49 Urine Nitrite Negative (NEGATIVE) 12/28/16 09:49 Urine Bilirubin Negative (NEGATIVE) 12/28/16 09:49 Urine Urobilinogen Negative mg/dL (0.2-1.0) 12/28/16 09:49 Ur Leukocyte Esterase Negative (NEGATIVE) 12/28/16 09:49 Urine RBC <1 /hpf (0-3) 12/28/16 09:49 Urine WBC <1 /hpf (3-5) 12/28/16 09:49 Urine Mucus Few 12/28/16 09:49 RPR Titer Nonreactive (NONREACTIVE) 12/29/16 07:45 Assessment: 12/29/16 12:41 WITHDRAWAL SX Plan: CONTINUE DETOX IMODIUM PRN
[2016-12-29] MEDS: THIAMINE HCL 100 MG TABLET (FP) PO SCH (22:34)
[2016-12-29] MEDS: ZOLPIDEM TARTRATE 5 MG TABLET PO PRN (22:34)
[2016-12-30] MEDS: chlordiazePOXIDE HCL 25 MG CAPSULE PO SCH ×2 (05:46→10:43)
[2016-12-30] MEDS: CYCLOBENZAPRINE HCL 10 MG TABLET (FP) PO SCH ×3 (05:46→22:08)
[2016-12-30] MEDS: ACETAMINOPHEN 325 MG TABLET (FP) PO PRN ×2 (05:47→23:16)
[2016-12-30] MEDS: GABAPENTIN 100 MG CAPSULE (FP) PO SCH ×3 (06:19→22:08)
[2016-12-30] MEDS: PRENATAL VITAMINS W/ FOLIC ACID TABLET (FP) PO SCH (10:40)
[2016-12-30] MEDS: RITONAVIR 100 MG TABLET PO SCH (10:41)
[2016-12-30] MEDS: NAPROXEN 500 MG TABLET (FP) PO SCH ×2 (10:41→22:08)
[2016-12-30] MEDS: PANTOPRAZOLE 40 MG TABLET (FP) PO SCH (10:41)
[2016-12-30] MEDS: EMTRICITABINE 200MG/TENOFOVIR 300MG PO SCH (10:41)
[2016-12-30] MEDS: NICOTINE 14 MG/24 HOURS TOPICAL PATCH TD SCH (10:42)
[2016-12-30] MEDS: DARUNAVIR ETHANOLATE 600 MG TAB PO SCH (10:42)
--- NOTE | 2016-12-30 12:28 | PN ---
[facility] CIWA - CIWA Score Nausea/Vomitin-No Nausea/No Vomiting Muscle Tremors: 4-Moderate,w/Arms Extend Anxiety: 3 Agitation: 2 Paroxysmal Sweats: 3 Orientation: 0-Oriented Tacttile Disturbances: 0-None Auditory Disturbances: 2-Mild Harshness/Frighten Visual Disturbances: 3-Moderate Sensitivity Headache: 0-None Present CIWA-Ar Total Score: 17 S Progress Note (SOAP) Subjective: Sweating, H/A, Diarrhea, Tremors. Objective: PT. A & O X 3, OBSERVED AMBULATING ON UNIT. NO ACUTE DISTRESS. 12/30/16 12:26 Vital Signs Temperature 95.9 F L 12/30/16 09:49 Pulse Rate 89 12/30/16 09:49 Respiratory Rate 18 12/30/16 09:49 Blood Pressure 114/75 12/30/16 09:49 O2 Sat by Pulse Oximetry (%) Laboratory Tests 12/28/16 12/29/16 12/29/16 09:49 07:45 07:45 WBC 6.7 RBC 4.81 Hgb 14.8 Hct 45.7 MCV 95.1 MCH 30.8 MCHC 32.4 RDW 12.8 Plt Count 205 MPV 9.0 Sodium 141 Potassium 3.6 Chloride 105 Carbon Dioxide 27 Anion Gap 9 BUN 12 Creatinine 1.2 Creat Clearance w eGFR > 60 Random Glucose 95 Calcium 8.5 Total Bilirubin 0.6 AST 15 D ALT 21 Alkaline Phosphatase 86 Total Protein 6.6 Albumin 3.4 Urine Color Caprice Urine Appearance Slcloudy Urine pH 5.0 Ur Specific [place] 1.020 Urine Protein 2+ H Urine Glucose (UA) Negative Urine Ketones Negative Urine Blood Negative Urine Nitrite Negative Urine Bilirubin Negative Urine Urobilinogen Negative Ur Leukocyte Esterase Negative Urine RBC <1 Urine WBC <1 Urine Mucus Few RPR Titer 12/29/16 07:45 WBC RBC Hgb Hct MCV MCH MCHC RDW Plt Count MPV Sodium Potassium Chloride Carbon Dioxide Anion Gap BUN Creatinine Creat Clearance w eGFR Random Glucose Calcium Total Bilirubin AST ALT Alkaline Phosphatase Total Protein Albumin Urine Color Urine Appearance Urine pH Ur Specific [place] Urine Protein Urine Glucose (UA) Urine Ketones Urine Blood Urine Nitrite Urine Bilirubin Urine Urobilinogen Ur Leukocyte Esterase Urine RBC Urine WBC Urine Mucus RPR Titer Nonreactive LABS NOTED. Assessment: 12/30/16 12:26 WITHDRAWAL SYMPTOMS. Plan: CONTINUE DETOX. PRN IMMODIUM FOR DIARRHEA. INCREASE DAILY PO FLUID INTAKE.
[2016-12-30] MEDS: chlordiazePOXIDE 5 MG CAPSULE PO SCH ×2 (16:42→22:09)
[2016-12-30] MEDS: ZOLPIDEM TARTRATE 5 MG TABLET PO PRN (22:08)
[2016-12-30] MEDS: THIAMINE HCL 100 MG TABLET (FP) PO SCH (22:11)
[2016-12-31] MEDS: GABAPENTIN 100 MG CAPSULE (FP) PO SCH ×3 (05:42→22:05)
[2016-12-31] MEDS: CYCLOBENZAPRINE HCL 10 MG TABLET (FP) PO SCH ×3 (05:42→22:05)
[2016-12-31] MEDS: chlordiazePOXIDE 5 MG CAPSULE PO SCH ×2 (05:42→11:00)
[2016-12-31] MEDS: PRENATAL VITAMINS W/ FOLIC ACID TABLET (FP) PO SCH (10:57)
[2016-12-31] MEDS: RITONAVIR 100 MG TABLET PO SCH (10:57)
[2016-12-31] MEDS: DARUNAVIR ETHANOLATE 600 MG TAB PO SCH (10:57)
[2016-12-31] MEDS: EMTRICITABINE 200MG/TENOFOVIR 300MG PO SCH (10:57)
[2016-12-31] MEDS: NICOTINE 14 MG/24 HOURS TOPICAL PATCH TD SCH (10:58)
[2016-12-31] MEDS: PANTOPRAZOLE 40 MG TABLET (FP) PO SCH (11:00)
[2016-12-31] MEDS: NAPROXEN 500 MG TABLET (FP) PO SCH ×2 (11:00→22:05)
--- NOTE | 2016-12-31 11:56 | PN ---
BHS Progress Note (SOAP) Subjective: Fatigue, Headache. Objective: PT. A & O X 3, OBSERVED AMBULATING ON UNIT. NO ACUTE DISTRESS. 12/31/16 11:54 Vital Signs Temperature 97.1 F L 12/31/16 09:17 Pulse Rate 88 12/31/16 09:17 Respiratory Rate 18 12/31/16 09:17 Blood Pressure 133/78 12/31/16 09:17 O2 Sat by Pulse Oximetry (%) Laboratory Tests 12/28/16 12/29/16 12/29/16 09:49 07:45 07:45 WBC 6.7 RBC 4.81 Hgb 14.8 Hct 45.7 MCV 95.1 MCH 30.8 MCHC 32.4 RDW 12.8 Plt Count 205 MPV 9.0 Sodium 141 Potassium 3.6 Chloride 105 Carbon Dioxide 27 Anion Gap 9 BUN 12 Creatinine 1.2 Creat Clearance w eGFR > 60 Random Glucose 95 Calcium 8.5 Total Bilirubin 0.6 AST 15 D ALT 21 Alkaline Phosphatase 86 Total Protein 6.6 Albumin 3.4 Urine Color Caprice Urine Appearance Slcloudy Urine pH 5.0 Ur Specific [place] 1.020 Urine Protein 2+ H Urine Glucose (UA) Negative Urine Ketones Negative Urine Blood Negative Urine Nitrite Negative Urine Bilirubin Negative Urine Urobilinogen Negative Ur Leukocyte Esterase Negative Urine RBC <1 Urine WBC <1 Urine Mucus Few RPR Titer 12/29/16 07:45 WBC RBC Hgb Hct MCV MCH MCHC RDW Plt Count MPV Sodium Potassium Chloride Carbon Dioxide Anion Gap BUN Creatinine Creat Clearance w eGFR Random Glucose Calcium Total Bilirubin AST ALT Alkaline Phosphatase Total Protein Albumin Urine Color Urine Appearance Urine pH Ur Specific [place] Urine Protein Urine Glucose (UA) Urine Ketones Urine Blood Urine Nitrite Urine Bilirubin Urine Urobilinogen Ur Leukocyte Esterase Urine RBC Urine WBC Urine Mucus RPR Titer Nonreactive LABS NOTED. Assessment: 12/31/16 11:55 WITHDRAWAL SYMPTOMS. Plan: CONTINUE DETOX.
[2016-12-31] MEDS: chlordiazePOXIDE HCL 10 MG CAPSULE PO SCH ×2 (17:41→22:05)
[2016-12-31] MEDS: THIAMINE HCL 100 MG TABLET (FP) PO SCH (22:05)
[2016-12-31] MEDS: ZOLPIDEM TARTRATE 5 MG TABLET PO PRN (22:07)
[2017-01-01] MEDS: CYCLOBENZAPRINE HCL 10 MG TABLET (FP) PO SCH (05:20)
[2017-01-01] MEDS: chlordiazePOXIDE HCL 10 MG CAPSULE PO SCH (05:20)
[2017-01-01] MEDS: GABAPENTIN 100 MG CAPSULE (FP) PO SCH (05:20)
[2017-01-01 06:21] VITALS: BP 114/73; PULSE 75; TEMP 97
--- NOTE | 2017-01-01 14:30 | DS ---
[facility] Detox Discharge Summary Admission Date: 12/28/16 Discharge Date: 01/01/17 - History Present History: Alcohol Dependence Additional Comments: PATIENT GOING HOME. PATIENT ADVISED TO CONSIDER LOCAL 12-STEP / AA OUTPATIENT SUPPORT GROUPS FOR AFTERCARE. PATIENT WAS DISCHARGED FROM DETOX UNIT IN STABLE MEDICAL CONDITION. Pertinent Past History: History of Anemia, HIV, Insomnia, Peripheral Neuropathy, Chronic Low Back Pain. - Physical Exam Results Vital Signs: Vital Signs Temperature 97 F L 01/01/17 06:20 Pulse Rate 75 01/01/17 06:20 Respiratory Rate 18 01/01/17 06:20 Blood Pressure 114/73 01/01/17 06:20 O2 Sat by Pulse Oximetry (%) Pertinent Admission Physical Exam Findings: WITHDRAWAL SYMPTOMS. Laboratory Tests 12/28/16 12/29/16 12/29/16 09:49 07:45 07:45 WBC 6.7 RBC 4.81 Hgb 14.8 Hct 45.7 MCV 95.1 MCH 30.8 MCHC 32.4 RDW 12.8 Plt Count 205 MPV 9.0 Sodium 141 Potassium 3.6 Chloride 105 Carbon Dioxide 27 Anion Gap 9 BUN 12 Creatinine 1.2 Creat Clearance w eGFR > 60 Random Glucose 95 Calcium 8.5 Total Bilirubin 0.6 AST 15 D ALT 21 Alkaline Phosphatase 86 Total Protein 6.6 Albumin 3.4 Urine Color Caprice Urine Appearance Slcloudy Urine pH 5.0 Ur Specific [place] 1.020 Urine Protein 2+ H Urine Glucose (UA) Negative Urine Ketones Negative Urine Blood Negative Urine Nitrite Negative Urine Bilirubin Negative Urine Urobilinogen Negative Ur Leukocyte Esterase Negative Urine RBC <1 Urine WBC <1 Urine Mucus Few RPR Titer 12/29/16 07:45 WBC RBC Hgb Hct MCV MCH MCHC RDW Plt Count MPV Sodium Potassium Chloride Carbon Dioxide Anion Gap BUN Creatinine Creat Clearance w eGFR Random Glucose Calcium Total Bilirubin AST ALT Alkaline Phosphatase Total Protein Albumin Urine Color Urine Appearance Urine pH Ur Specific [place] Urine Protein Urine Glucose (UA) Urine Ketones Urine Blood Urine Nitrite Urine Bilirubin Urine Urobilinogen Ur Leukocyte Esterase Urine RBC Urine WBC Urine Mucus RPR Titer Nonreactive LABS NOTED. - Treatment Hospital Course: Detox Protocol Followed, Detoxed Safely, Responded well, Discharged Condition Good Patient has Accepted a Rehab Referral to: NO. PT ADVISED TO CONSIDER LOCAL 12- STEP/AA OUTPATIENT SUPPORT GROUPS. - Medication Discharge Medications: Ambulatory Orders Darunavir Ethanolate [Prezista -] 600 mg PO DAILY 07/16/16 Emtricitabine/Tenofovir [Truvada] 1 tab PO DAILY 07/16/16 Ritonavir [Norvir -] 100 mg PO DAILY 07/16/16 - Diagnosis (1) Alcohol dependence with uncomplicated withdrawal Status: Acute (2) Drug-induced mood disorder Status: Acute (3) Substance induced mood disorder Status: Acute (4) Substance-induced sleep disorder Status: Acute (5) Weight loss Status: Acute (6) Chronic low back pain Status: Chronic Qualifiers: Back pain laterality: unspecified Sciatica presence: unspecified whether sciatica present Qualified Code(s): M54.5 - Low back pain; M54.5 - Low back pain; G89.29 - Other chronic pain; G89.29 - Other chronic pain (7) HIV (human immunodeficiency virus infection) Status: Chronic (8) Peripheral neuropathy Status: Chronic Qualifiers: Peripheral neuropathy type: polyneuropathy, unspecified Qualified Code(s): G62.9 - Polyneuropathy, unspecified; G62.9 - Polyneuropathy, unspecified (9) Nicotine dependence Status: Chronic Qualifiers: Nicotine product type: cigarettes Substance use status: in withdrawal Qualified Code(s): F17.213 - Nicotine dependence, cigarettes, with withdrawal; F17.213 - Nicotine dependence, cigarettes, with withdrawal - AMA Did Patient Leave Against Medical Advice: No
== END 2017-01-01 06:35 | disposition home or self-care (01) | DRG 774 ==
LOC: YASAS 11:31 → Y3N 14:20
PROVIDERS: ADMIT Internal Medicine; ATTEND Internal Medicine
PROC: HZ2ZZZZ Detoxification Services for Substance Abuse Treatment (ICD-10-PCS; principal; 2016-12-28)
DX: F10.230 Alcohol dependence with withdrawal, uncomplicated (principal); F14.20 Cocaine dependence, uncomplicated; F12.20 Cannabis dependence, uncomplicated; F17.213 Nicotine dependence, cigarettes, with withdrawal; F19.24 Other psychoactive substance dependence with psychoactive substance-induced mood disorder; F19.280 Other psychoactive substance dependence with psychoactive substance-induced anxiety disorder; F19.282 Other psychoactive substance dependence with psychoactive substance-induced sleep disorder; G62.9 Polyneuropathy, unspecified; M54.5 Low back pain; G89.29 Other chronic pain; Z21 Asymptomatic human immunodeficiency virus [HIV] infection status; R63.4 Abnormal weight loss; Z68.27 Body mass index [BMI] 27.0-27.9, adult
CPT/HCPCS: 36415; 80053; 81003; 81015; 85027; 86593; 90688; 93005; 93010; G0008

== ENCOUNTER 2017-07-18 09:58 | Inpatient (IN) | payer OTHER ==
[2017-07-18 10:18] VITALS: BMI 27.3
--- NOTE | 2017-07-18 12:42 | HP ---
CIWA Score - CIWA Score Nausea/Vomitin-Mild Nausea/No Vomiting Muscle Tremors: 2 Anxiety: 2 Agitation: 2 Paroxysmal Sweats: 2 Orientation: 0-Oriented Tacttile Disturbances: 2-Mild Itch/Numbness/Burn Auditory Disturbances: 0-None Visual Disturbances: 0-None Headache: 2-Mild CIWA-Ar Total Score: 13 Admission ROS S - [facility] Chief Complaint: ETOH withdrawal symptoms and cocaine use. Allergies/Adverse Reactions: Allergies Allergy/AdvReac Type Severity Reaction Status Date / Time No Known Drug Allergies Allergy Verified 07/18/17 11:03 olives Allergy Severe Hives Uncoded 07/18/17 11:03 PICKLES Allergy Severe Hives Uncoded 07/18/17 11:03 History of Present Illness: Patient presents for ETOH withdrawal symptoms. Has attempted detox in past at [facility]. Last admission 12/2016. Patient started drinking at age 14. Drinks up to 1 litre of RUM daily and 12 pack of beer. Also sniffs cocaine daily. Snorts up to 1 gram daily. Last drink and cocaine use yesterday morning. +marajuana use. 5- 10 joints daily. Last time he smoked was yesterday. Denies seizures from ETOH use/withdrawal. Has PMH of HIV+ and take medication daily. Has medication with him in his belongings. Patient also smokes cigarettes, 1/2 ppd. States he has been feeling depressed in past week. Denies SI/HI or suicide attempts. Exam Limitations: No Limitations - Ebola screening Have you traveled outside of the country in the last 21 days: No Have you had contact with anyone from an Ebola affected area: No Have you been sick,other than usual withdrawal symptoms: No Do you have a fever: No - Review of Systems Constitutional: Chills, Night Sweats, Changes in sleep EENT: reports: Nose Congestion Respiratory: reports: Cough, Shortness of Breath Cardiac: reports: Palpitations GI: reports: Nausea, Poor Fluid Intake, Abdominal cramping : reports: No Symptoms Reported Musculoskeletal: reports: Back Pain Integumentary: reports: Sweating Neuro: reports: Headache, Numbness, Tremors Endocrine: reports: No Symptoms Reported Hematology: reports: No Symptoms Reported Psychiatric: reports: Orientated x3, Anxious, Depressed Patient History - Patient Medical History Hx Anemia: Yes (lab pending) Hx Asthma: No Hx Chronic Obstructive Pulmonary Disease (COPD): No Hx Cancer: No Hx Cardiac Disorders: No Hx Congestive Heart Failure: No Hx Hypertension: No Hx Hypercholesterolemia: No Hx Pacemaker: No HX Cerebrovascular Accident: No Hx Seizures: No Hx Dementia: No Hx Diabetes: No Hx Gastrointestinal Disorders: No Hx Liver Disease: No Hx Genitourinary Disorders: No Hx Sexually Transmitted Disorders: No Hx Renal Disease (ESRD): No Hx Thyroid Disease: No Hx Human Immunodeficiency Virus (HIV): Yes (Taking medication daily. Last dose today. Has med with him) Hx Hepatitis C: No Hx Depression: Yes Hx Suicide Attempt: No Hx Bipolar Disorder: No Hx Schizophrenia: No - Patient Surgical History Past Surgical History: No Hx Neurologic Surgery: No Hx Cataract Extraction: No Hx Cardiac Surgery: No Hx Lung Surgery: No Hx Breast Surgery: No Hx Breast Biopsy: No Hx Abdominal Surgery: No Hx Appendectomy: No Hx Cholecystectomy: No Hx Genitourinary Surgery: No Hx Section: No Hx Orthopedic Surgery: No Hx Hysterectomy: No Anesthesia Reaction: No - PPD History Previous Implant?: Yes Documented Results: Positive w/o proof Implanted On Prior R Admission?: No PPD to be Administered?: No - Smoking Cessation Smoking history: Current every day smoker Have you smoked in the past 12 months: Yes Aproximately how many cigarettes per day: 10 Cigars Per Day: 0 Hx Chewing Tobacco Use: No Initiated information on smoking cessation: Yes 'Breaking Loose' booklet given: 07/18/17 - Substance & Tx. History Hx Alcohol Use: Yes Hx Substance Use: Yes Substance Use Type: Alcohol, Cocaine Hx Substance Use Treatment: Yes - Substances Abused Alcohol Route: Oral Frequency: Daily Amount used: 2 6pks beer/1 pint rum Age of first use: 15 Date of Last Use: 07/17/17 Cocaine Route: Inhalation Frequency: Daily Amount used: 1 gram Age of first use: 20 Date of Last Use: 07/17/17 Marijuana/Hashish Route: Smoking Frequency: Daily Amount used: $20 Age of first use: 15 Date of Last Use: 07/18/17 Family Disease History - Family Disease History Family Disease History: CA: Father (, alcoholic ca liver), Other: Father Admission Physical Exam BHS - Vital Signs Vital Signs: Vital Signs - 24 hr 07/18/17 07/18/17 10:13 10:15 Temperature 98.8 F 98.8 F Pulse Rate 81 81 Respiratory 18 18 Rate Blood Pressure 159/93 159/93 - Physical General Appearance: Yes: Appropriately Dressed, Sweating, Anxious HEENTM: Yes: EOMI, Hearing grossly Normal, Normal ENT Inspection, Normal Voice, DEEPIKA, Pharynx Normal Respiratory: Yes: Within Normal Limits, Chest Non-Tender, Lungs Clear, Normal Breath Sounds, No Respiratory Distress, No Accessory Muscle Use Neck: Yes: No masses,lesions,Nodules, Supple, Trachea in good position Breast: Yes: Breast Exam Deferred Cardiology: Yes: Regular Rhythm, Regular Rate, S1, S2 Abdominal: Yes: Normal Bowel Sounds, Non Tender, Soft Genitourinary: Yes: Within Normal Limits Back: Yes: Muscle Spasm Musculoskeletal: Yes: Back pain, Muscle Pain Extremities: Yes: Normal Inspection, Normal Range of Motion, Non-Tender, Tremors 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 NML intact, Fully Oriented, Alert, Motor Strength 5/5, Depressed Affect Integumentary: Yes: Normal Color, Warm, Moist Lymphatic: Yes: Within Normal Limits - Diagnostic (1) Alcohol dependence with uncomplicated withdrawal Current Visit: Yes Status: Acute (2) Cannabis dependence Current Visit: Yes Status: Chronic (3) Cocaine dependence Current Visit: Yes Status: Acute Qualifiers: Substance use status: uncomplicated Qualified Code(s): F14.20 - Cocaine dependence, uncomplicated (4) HIV (human immunodeficiency virus infection) Current Visit: Yes Status: Chronic Comment: took today but no one can bring him meds this time (5) Nicotine dependence Current Visit: Yes Status: Chronic Qualifiers: Nicotine product type: cigarettes Substance use status: uncomplicated Qualified Code(s): F17.210 - Nicotine dependence, cigarettes, uncomplicated Cleared for Admission [facility] - Detox or Rehab [facility] Level of Care: Medically Managed Detox Regimen/Protocol: Librium [facility] Breath Alcohol Content Breath Alcohol Content: 0 Urine Drug Screen - Results Drug Screen Negative: No Urine Drug Screen Results: THC-Marijuana, BRITTANEY-Cocaine, TCA-Tricyclic Antidepress
[2017-07-18] MEDS ORDERED: P-EPHED 60MG/TRIPROLIDI 2.5MG TABLET PO PRN (12:51)
[2017-07-18] MEDS ORDERED: guaiFENesin/D-METHORPHAN HB 10 ML UNIT-DOSE CUPS PO PRN (12:51)
[2017-07-18] MEDS ORDERED: MAGNESIUM HYDROX 2400MG/30ML ORAL SUSPENSION 30 ML CUP PO PRN (12:51)
[2017-07-18] MEDS ORDERED: hydrOXYzine PAMOATE 50 MG CAPSULE (FP) PO PRN (12:51)
[2017-07-18] MEDS ORDERED: MAGNESIUM CITRATE 300 ML BOTTLE PO PRN (12:51)
[2017-07-18] MEDS ORDERED: MAG HYDROX/AL HYDROX/SIMETH 30 ML UNIT-DOSE CUP PO PRN (12:51)
[2017-07-18] MEDS ORDERED: LOPERAMIDE HCL 2 MG CAPSULE PO PRN (12:51)
[2017-07-18] MEDS ORDERED: MENTHOL/PHENOL 1 EACH UD MM PRN (12:51)
[2017-07-18] MEDS ORDERED: chlordiazePOXIDE HCL 25 MG CAPSULE PO PRN (12:54)
[2017-07-18] MEDS ORDERED: chlordiazePOXIDE HCL 25 MG CAPSULE PO ONE (14:00)
[2017-07-18] MEDS: IBUPROFEN 400 MG TABLET (FP) PO PRN (15:06)
[2017-07-18] MEDS: chlordiazePOXIDE HCL 25 MG CAPSULE PO SCH ×2 (17:12→22:05)
[2017-07-18] MEDS: NICOTINE POLACRILEX 2 MG GUM BC PRN (17:14)
--- NOTE | 2017-07-18 18:05 | CONSULT ---
[facility] Psychiatric Consult - Data Date of interview: 07/18/17 Admission source: [facility] Identifying data: Readmission to [facility] for this 41 y/o male seeking detox treatment on for alcohol,cocaine and cannabis dependence.Patient is single without children,domiciled,unemployed and supported on SSI benefits. Substance Abuse History: Confirmed by patient in this interview.Details in current [facility] report as follows : Smoking history: Current every day smoker. Have you smoked in the past 12 months: Yes. Aproximately how many cigarettes per day: 10. Cigars Per Day: 0. Hx Chewing Tobacco Use: No. Initiated information on smoking cessation: Yes. 'Breaking Loose' booklet given: . - Substance & Tx. History. Hx Alcohol Use: Yes. Hx Substance Use: Yes. Substance Use Type: Alcohol, Cocaine. Hx Substance Use Treatment: Yes. - Substances Abused. Alcohol. Route: Oral. Frequency: Daily. Amount used: 2 6pks beer/1 pint rum. Age of first use: 15. Date of Last Use: 07/17/17. Cocaine. Route: Inhalation. Frequency: Daily. Amount used: 1 gram. Age of first use: 20. Date of Last Use: 07/17/17. Marijuana/Hashish. Route: Smoking. Frequency: Daily. Amount used: $20. Age of first use: 15. Date of Last Use: 07/18/17 Medical History: anemia,HIV infection since 2006 (on HAART medications), peripheral Neuropathy,positive PPD and a history of chronic lumbar pain ( herniated disc). Psychiatric History: Patient denies history of psychiatric hospitalizations or suicide attempts. Physical/Sexual Abuse/Trauma History: Patient denies. Additional Comment: Urine Drug Screen Results: THC-Marijuana, BRITTANEY-Cocaine, TCA- Tricyclic Antidepressant.Noted. Mental Status Exam - Mental Status Exam Alert and Oriented to: Time, Place, Person Cognitive Function: Good Patient Appearance: Well Groomed Mood: Withdrawn, Apprehensive, Hopeful Affect: Mood Congruent Patient Behavior: Fatigued, Appropriate, Cooperative Speech Pattern: Clear, Appropriate Voice Loudness: Normal Thought Process: Intact, Goal Oriented Thought Disorder: Not Present Hallucinations: Denies Suicidal Ideation: Denies Homicidal Ideation: Denies Insight/Judgement: Poor Sleep: Poorly, Difficulty falling asleep Appetite: Good Muscle strength/Tone: Normal Gait/Station: Normal Psychiatric Findings - Problem List ([place] 1, 2,3) (1) Alcohol dependence with uncomplicated withdrawal Current Visit: Yes Status: Acute (2) Cocaine dependence Current Visit: Yes Status: Acute Qualifiers: Substance use status: uncomplicated Qualified Code(s): F14.20 - Cocaine dependence, uncomplicated (3) Cannabis dependence Current Visit: Yes Status: Acute (4) Nicotine dependence Current Visit: Yes Status: Acute Qualifiers: Nicotine product type: cigarettes Substance use status: uncomplicated Qualified Code(s): F17.210 - Nicotine dependence, cigarettes, uncomplicated (5) Substance induced mood disorder Current Visit: Yes Status: Acute (6) Insomnia Current Visit: Yes Status: Acute - Initial Treatment Plan Initial Treatment Plan: Psychoeducation and support.Detoxification.Sleep hygiene.Ambien 5 mg po hs prn.Patient is made aware of risk of sleep- walking.Agrees with this careplan.Observation.
[2017-07-18] MEDS: THIAMINE HCL 100 MG TABLET (FP) PO SCH (22:04)
[2017-07-18] MEDS: ZOLPIDEM TARTRATE 5 MG TABLET PO PRN (22:04)
[2017-07-19] MEDS: chlordiazePOXIDE HCL 25 MG CAPSULE PO SCH ×4 (06:10→22:12)
[2017-07-19] MEDS: PRENATAL VITAMINS W/ FOLIC ACID TABLET (FP) PO SCH (10:15)
[2017-07-19] MEDS: NICOTINE 21 MG/24 HOURS TOPICAL PATCH TD SCH (10:15)
[2017-07-19] MEDS: ACETAMINOPHEN 325 MG TABLET (FP) PO PRN ×2 (10:16→17:33)
[2017-07-19 10:50] LABS: CHLORIDE 108 mmol/L (98-107); POTASSIUM 4.2 mmol/L (3.5-5.1); SODIUM 141 mmol/L (136-145)
[2017-07-19 10:51] LABS: HEMATOCRIT 46.6 % (35.4-49); HEMOGLOBIN 15.7 GM/dL (11.7-16.9); MCH 32.3 pg (25.7-33.7); MCHC 33.8 g/dl (32.0-35.9); MEAN CELL VOLUME 95.7 fl (80-96); MEAN PLT VOLUME 9.6 fl (7.5-11.1); PLATELET COUNT 218 K/MM3 (134-434); RBC 4.87 M/mm3 (4.00-5.60); RDW 12.8 % (11.9-15.9); WHITE BLOOD COUNT 7.4 K/mm3 (4.0-10.0)
[2017-07-19 11:09] LABS: ALBUMIN 3.9 g/dl (3.4-5.0); ALK PHOS 83 U/L (45-117); ANION GAP 6 (8-16); BILIRUBIN,TOTAL 0.6 mg/dL (0.2-1.0); BLOOD UREA NITROGEN 13 mg/dL (7-18); CO2 27 mmol/L (21-32); CREATININE 1.4 mg/dL (0.7-1.3); GLUCOSE,RANDOM 83 mg/dL (74-106); SGOT/AST 21 U/L (15-37); SGPT/ALT 21 U/L (12-78); TOT PROT 7.8 g/dl (6.4-8.2)
[2017-07-19] MEDS: DARUNAVIR ETHANOLATE 600 MG TAB PO SCH (12:32)
[2017-07-19] MEDS: RITONAVIR 100 MG TABLET PO SCH (12:32)
[2017-07-19] MEDS: EMTRICITABINE 200MG/TENOFOVIR 300MG PO SCH (12:33)
--- NOTE | 2017-07-19 14:40 | EKG ---
Test Reason : Blood Pressure : / mmHG Vent. Rate : 074 BPM Atrial Rate : 074 BPM P-R Int : 164 ms QRS Dur : 104 ms QT Int : 410 ms P-R-T Axes : 014 062 109 degrees QTc Int : 455 ms NORMAL SINUS RHYTHM MODERATE VOLTAGE CRITERIA FOR LVH, MAY BE NORMAL VARIANT ABNORMAL ECG WHEN COMPARED WITH ECG OF 28-DEC-2016 15:16, ST NOW DEPRESSED IN LATERAL LEADS NONSPECIFIC T WAVE ABNORMALITY NO LONGER EVIDENT IN INFERIOR LEADS T WAVE INVERSION NOW EVIDENT IN ANTEROLATERAL LEADS Confirmed by MD Berto, Jose Guadalupe ([id number]) on 07/19/2017 2:40:03 PM Referred By: Confirmed By:Jose Guadalupe Thomson MD
--- NOTE | 2017-07-19 15:11 | PN ---
[facility] CIWA - CIWA Score Nausea/Vomitin-No Nausea/No Vomiting Muscle Tremors: 4-Moderate,w/Arms Extend Anxiety: 4-Mod. Anxious/Guarded Agitation: 4-Moderately Restless Paroxysmal Sweats: 3 Orientation: 0-Oriented Tacttile Disturbances: 3-Moderate Itch/Numb/Burn Auditory Disturbances: 0-None Visual Disturbances: 0-None Headache: 0-None Present CIWA-Ar Total Score: 18 BHS Progress Note (SOAP) Subjective: Interrupted Sleep, Sweating, Anxious, Tremors. Objective: PATIENT A & O X 3, OBSERVED AMBULATING ON UNIT. NO ACUTE DISTRESS. PATIENT REPORTS INTERMITTENT CHEST DISCOMFORT (STERNAL AREA) X SEVERAL WEEKS. PATIENT DENIES RADIATION OF PAIN TO ANY OTHER AREA, INCLUDING DOWN ARMS. PATIENT DENIES ANY KNOWN HISTORY OF CARDIOVASCULAR DISEASE. PATIENT DENIES DIZZINESS AND SOB. RESULTS OF ADMISSION AND REPEAT ECG NOTED. 07/19/17 15:02 Vital Signs Temperature 97.3 F L 07/19/17 13:20 Pulse Rate 82 07/19/17 13:20 Respiratory Rate 18 07/19/17 13:20 Blood Pressure 119/69 07/19/17 13:20 O2 Sat by Pulse Oximetry (%) Laboratory Tests 07/19/17 07/19/17 07/19/17 06:00 06:00 06:00 WBC 7.4 RBC 4.87 Hgb 15.7 Hct 46.6 MCV 95.7 MCH 32.3 MCHC 33.8 RDW 12.8 Plt Count 218 MPV 9.6 Sodium 141 Potassium 4.2 Chloride 108 H Carbon Dioxide 27 Anion Gap 6 L BUN 13 Creatinine 1.4 H Creat Clearance w eGFR 55.85 Random Glucose 83 Calcium 9.0 Total Bilirubin 0.6 AST 21 D ALT 21 Alkaline Phosphatase 83 Total Protein 7.8 Albumin 3.9 RPR Titer Nonreactive LABS NOTED. UA RESULTS PENDING. 07/19/17 15:04 Assessment: 07/19/17 15:03 WITHDRAWAL SYMPTOMS. Plan: CONTINUE DETOX. PATIENT ADVISED TO FOLLOW-UP WITH ROLLING ATTENDANT DR. Laura GARCIA ([facility]) AFTER DISCHARGE FROM DETOX FOR GENERAL MEDICAL ASSESSMENT AND FOR ECG ABNORMALITIES NOTED WHILE ADMITTED FOR DETOX.
[2017-07-19] MEDS: IBUPROFEN 400 MG TABLET (FP) PO PRN (20:56)
[2017-07-19] MEDS: MELATONIN 5 MG TABLETS PO PRN (22:13)
[2017-07-19] MEDS: ZOLPIDEM TARTRATE 5 MG TABLET PO PRN (22:13)
[2017-07-19] MEDS: THIAMINE HCL 100 MG TABLET (FP) PO SCH (22:13)
[2017-07-20] MEDS: chlordiazePOXIDE HCL 25 MG CAPSULE PO SCH ×2 (05:21→10:16)
[2017-07-20] MEDS: ACETAMINOPHEN 325 MG TABLET (FP) PO PRN ×3 (05:58→22:19)
[2017-07-20] MEDS: NICOTINE 21 MG/24 HOURS TOPICAL PATCH TD SCH (10:16)
[2017-07-20] MEDS: EMTRICITABINE 200MG/TENOFOVIR 300MG PO SCH (10:16)
[2017-07-20] MEDS: DARUNAVIR ETHANOLATE 600 MG TAB PO SCH (10:16)
[2017-07-20] MEDS: PRENATAL VITAMINS W/ FOLIC ACID TABLET (FP) PO SCH (10:16)
[2017-07-20] MEDS: RITONAVIR 100 MG TABLET PO SCH (10:17)
--- NOTE | 2017-07-20 13:05 | PN ---
S CIWA - CIWA Score Nausea/Vomitin-No Nausea/No Vomiting Muscle Tremors: 4-Moderate,w/Arms Extend Anxiety: 4-Mod. Anxious/Guarded Agitation: 4-Moderately Restless Paroxysmal Sweats: 1-Minimal Palms Moist Orientation: 0-Oriented Tacttile Disturbances: 0-None Auditory Disturbances: 0-None Visual Disturbances: 0-None Headache: 0-None Present CIWA-Ar Total Score: 13 BHS Progress Note (SOAP) Subjective: ANXIETY,SWEATS,TREMORS. Objective: 07/20/17 13:07 Vital Signs Temperature 98.9 F 07/20/17 09:25 Pulse Rate 105 H 07/20/17 09:25 Respiratory Rate 18 07/20/17 09:25 Blood Pressure 130/80 07/20/17 09:25 O2 Sat by Pulse Oximetry (%) Laboratory Tests 07/19/17 07/19/17 07/19/17 06:00 06:00 06:00 WBC 7.4 RBC 4.87 Hgb 15.7 Hct 46.6 MCV 95.7 MCH 32.3 MCHC 33.8 RDW 12.8 Plt Count 218 MPV 9.6 Sodium 141 Potassium 4.2 Chloride 108 H Carbon Dioxide 27 Anion Gap 6 L BUN 13 Creatinine 1.4 H Creat Clearance w eGFR 55.85 Random Glucose 83 Calcium 9.0 Total Bilirubin 0.6 AST 21 D ALT 21 Alkaline Phosphatase 83 Total Protein 7.8 Albumin 3.9 RPR Titer Nonreactive Assessment: 07/20/17 13:07 WITHDRAWAL SX Plan: CONTINUE DETOX
--- NOTE | 2017-07-20 14:35 | EKG ---
Test Reason : Blood Pressure : / mmHG Vent. Rate : 073 BPM Atrial Rate : 073 BPM P-R Int : 164 ms QRS Dur : 094 ms QT Int : 432 ms P-R-T Axes : 024 066 144 degrees QTc Int : 475 ms NORMAL SINUS RHYTHM T WAVE ABNORMALITY, CONSIDER ANTEROLATERAL ISCHEMIA PROLONGED QT ABNORMAL ECG WHEN COMPARED WITH ECG OF 18-JUL-2017 14:09, NO SIGNIFICANT CHANGE WAS FOUND Confirmed by MD Berto, Jose Guadalupe ([id number]) on 07/20/2017 2:35:33 PM Referred By: Confirmed By:Jose Guadalupe Thomson MD
[2017-07-20] MEDS: chlordiazePOXIDE 5 MG CAPSULE PO SCH ×2 (17:09→22:17)
[2017-07-20] MEDS: IBUPROFEN 400 MG TABLET (FP) PO PRN (17:12)
[2017-07-20 17:48] LABS: URINE APPEARANCE CLEAR; URINE BILIRUBIN NEGATIVE (<2.0 mg/dL); URINE COLOR LTYELLOW; URINE GLUCOSE (UA) NEGATIVE (NEGATIVE); URINE KETONE NEGATIVE (NEGATIVE); URINE LEUK ESTERASE NEGATIVE (NEGATIVE); URINE NITRITE NEGATIVE (NEGATIVE); URINE PROTEIN NEGATIVE (NEGATIVE); URINE UROBILINOGEN NEGATIVE mg/dL (0.2-1.0)
[2017-07-20] MEDS: THIAMINE HCL 100 MG TABLET (FP) PO SCH (22:16)
[2017-07-20] MEDS: MELATONIN 5 MG TABLETS PO PRN (22:19)
[2017-07-20] MEDS: ZOLPIDEM TARTRATE 5 MG TABLET PO PRN (22:19)
[2017-07-21] MEDS: chlordiazePOXIDE 5 MG CAPSULE PO SCH ×2 (05:35→10:23)
[2017-07-21] MEDS: IBUPROFEN 400 MG TABLET (FP) PO PRN ×2 (05:36→17:39)
[2017-07-21] MEDS: NICOTINE 21 MG/24 HOURS TOPICAL PATCH TD SCH (10:22)
[2017-07-21] MEDS: PRENATAL VITAMINS W/ FOLIC ACID TABLET (FP) PO SCH (10:22)
[2017-07-21] MEDS: ACETAMINOPHEN 325 MG TABLET (FP) PO PRN (10:22)
[2017-07-21] MEDS: RITONAVIR 100 MG TABLET PO SCH (10:23)
[2017-07-21] MEDS: EMTRICITABINE 200MG/TENOFOVIR 300MG PO SCH (10:23)
[2017-07-21] MEDS: DARUNAVIR ETHANOLATE 600 MG TAB PO SCH (10:23)
--- NOTE | 2017-07-21 11:41 | PN ---
BHS Progress Note (SOAP) Subjective: ANXIETY,SWEATS. DETOX PROCEEDING PER PROTOCOL. Objective: 07/21/17 11:40 Vital Signs Temperature 97.3 F L 07/21/17 09:24 Pulse Rate 97 H 07/21/17 09:24 Respiratory Rate 20 07/21/17 09:24 Blood Pressure 106/66 07/21/17 09:24 O2 Sat by Pulse Oximetry (%) Laboratory Tests 07/19/17 07/19/17 07/19/17 06:00 06:00 06:00 WBC 7.4 RBC 4.87 Hgb 15.7 Hct 46.6 MCV 95.7 MCH 32.3 MCHC 33.8 RDW 12.8 Plt Count 218 MPV 9.6 Sodium 141 Potassium 4.2 Chloride 108 H Carbon Dioxide 27 Anion Gap 6 L BUN 13 Creatinine 1.4 H Creat Clearance w eGFR 55.85 Random Glucose 83 Calcium 9.0 Total Bilirubin 0.6 AST 21 D ALT 21 Alkaline Phosphatase 83 Total Protein 7.8 Albumin 3.9 Urine Color Urine Appearance Urine pH Ur Specific [place] Urine Protein Urine Glucose (UA) Urine Ketones Urine Blood Urine Nitrite Urine Bilirubin Urine Urobilinogen Ur Leukocyte Esterase RPR Titer Nonreactive 07/20/17 13:33 WBC RBC Hgb Hct MCV MCH MCHC RDW Plt Count MPV Sodium Potassium Chloride Carbon Dioxide Anion Gap BUN Creatinine Creat Clearance w eGFR Random Glucose Calcium Total Bilirubin AST ALT Alkaline Phosphatase Total Protein Albumin Urine Color Ltyellow Urine Appearance Clear Urine pH 6.0 Ur Specific [place] 1.010 Urine Protein Negative Urine Glucose (UA) Negative Urine Ketones Negative Urine Blood Negative Urine Nitrite Negative Urine Bilirubin Negative Urine Urobilinogen Negative Ur Leukocyte Esterase Negative RPR Titer Assessment: 07/21/17 11:40 SLIGHT WITHDRAWAL SX Plan: CONTINUE DETOX
[2017-07-21] MEDS: chlordiazePOXIDE HCL 10 MG CAPSULE PO SCH ×2 (17:39→22:08)
[2017-07-21] MEDS: NICOTINE POLACRILEX 2 MG GUM BC PRN (17:47)
[2017-07-21] MEDS: THIAMINE HCL 100 MG TABLET (FP) PO SCH (22:08)
[2017-07-21] MEDS: MELATONIN 5 MG TABLETS PO PRN (22:08)
[2017-07-22] MEDS: chlordiazePOXIDE HCL 10 MG CAPSULE PO SCH ×2 (05:43→10:14)
[2017-07-22] MEDS: IBUPROFEN 400 MG TABLET (FP) PO PRN (06:13)
[2017-07-22] MEDS: NICOTINE 21 MG/24 HOURS TOPICAL PATCH TD SCH (10:15)
[2017-07-22] MEDS: RITONAVIR 100 MG TABLET PO SCH (10:15)
[2017-07-22] MEDS: DARUNAVIR ETHANOLATE 600 MG TAB PO SCH (10:15)
[2017-07-22] MEDS: PRENATAL VITAMINS W/ FOLIC ACID TABLET (FP) PO SCH (10:15)
[2017-07-22] MEDS: ACETAMINOPHEN 325 MG TABLET (FP) PO PRN ×2 (10:15→22:05)
[2017-07-22] MEDS: EMTRICITABINE 200MG/TENOFOVIR 300MG PO SCH (10:15)
[2017-07-22] MEDS: PANTOPRAZOLE 40 MG TABLET (FP) PO SCH (10:16)
--- NOTE | 2017-07-22 15:24 | PN ---
S Progress Note (SOAP) Subjective: DETOX PROTOCOL COMPLETED. ALERT O X 3. NAD. PT HELD FOR DIRECT PICKUP ON BY [facility] PER COUNSELOR DELIA ONEILL. Objective: 07/22/17 15:22 Vital Signs Temperature 98.4 F 07/22/17 14:03 Pulse Rate 85 07/22/17 14:03 Respiratory Rate 18 07/22/17 14:03 Blood Pressure 133/82 07/22/17 14:03 O2 Sat by Pulse Oximetry (%) Laboratory Last Values WBC 7.4 K/mm3 (4.0-10.0) 07/19/17 06:00 RBC 4.87 M/mm3 (4.00-5.60) 07/19/17 06:00 Hgb 15.7 GM/dL (11.7-16.9) 07/19/17 06:00 Hct 46.6 % (35.4-49) 07/19/17 06:00 MCV 95.7 fl (80-96) 07/19/17 06:00 MCH 32.3 pg (25.7-33.7) 07/19/17 06:00 MCHC 33.8 g/dl (32.0-35.9) 07/19/17 06:00 RDW 12.8 % (11.9-15.9) 07/19/17 06:00 Plt Count 218 K/MM3 (134-434) 07/19/17 06:00 MPV 9.6 fl (7.5-11.1) 07/19/17 06:00 Sodium 141 mmol/L (136-145) 07/19/17 06:00 Potassium 4.2 mmol/L (3.5-5.1) 07/19/17 06:00 Chloride 108 mmol/L (98-107) H 07/19/17 06:00 Carbon Dioxide 27 mmol/L (21-32) 07/19/17 06:00 Anion Gap 6 (8-16) L 07/19/17 06:00 BUN 13 mg/dL (7-18) 07/19/17 06:00 Creatinine 1.4 mg/dL (0.7-1.3) H 07/19/17 06:00 Creat Clearance w eGFR 55.85 (>60) 07/19/17 06:00 Random Glucose 83 mg/dL (74-106) 07/19/17 06:00 Calcium 9.0 mg/dL (8.5-10.1) 07/19/17 06:00 Total Bilirubin 0.6 mg/dL (0.2-1.0) 07/19/17 06:00 AST 21 U/L (15-37) D 07/19/17 06:00 ALT 21 U/L (12-78) 07/19/17 06:00 Alkaline Phosphatase 83 U/L (45-117) 07/19/17 06:00 Total Protein 7.8 g/dl (6.4-8.2) 07/19/17 06:00 Albumin 3.9 g/dl (3.4-5.0) 07/19/17 06:00 Urine Color Ltyellow 07/20/17 13:33 Urine Appearance Clear 07/20/17 13:33 Urine pH 6.0 (5.0-8.0) 07/20/17 13:33 Ur Specific [place] 1.010 (1.001-1.035) 07/20/17 13:33 Urine Protein Negative (NEGATIVE) 07/20/17 13:33 Urine Glucose (UA) Negative (NEGATIVE) 07/20/17 13:33 Urine Ketones Negative (NEGATIVE) 07/20/17 13:33 Urine Blood Negative (NEGATIVE) 07/20/17 13:33 Urine Nitrite Negative (NEGATIVE) 07/20/17 13:33 Urine Bilirubin Negative (<2.0 mg/dL) 07/20/17 13:33 Urine Urobilinogen Negative mg/dL (0.2-1.0) 07/20/17 13:33 Ur Leukocyte Esterase Negative (NEGATIVE) 07/20/17 13:33 RPR Titer Nonreactive (NONREACTIVE) 07/19/17 06:00 Assessment: 07/22/17 15:22 DECREASED WITHDRAWAL SX Plan: D/C PT IN A.M TO [facility] PLANNED.
[2017-07-22] MEDS: THIAMINE HCL 100 MG TABLET (FP) PO SCH (22:04)
[2017-07-22] MEDS: MELATONIN 5 MG TABLETS PO PRN (22:04)
--- NOTE | 2017-07-23 08:35 | PN ---
BHS Progress Note (SOAP) Subjective: DETOX COMPLETED. ALERT O X 3. PT WILL BE PICKED UP TODAY BY [facility] AFTERCARE PLANNED. Objective: 07/23/17 08:34 Vital Signs Temperature 96 F L 07/23/17 06:18 Pulse Rate 70 07/23/17 06:18 Respiratory Rate 18 07/23/17 06:30 Blood Pressure 115/72 07/23/17 06:18 O2 Sat by Pulse Oximetry (%) Laboratory Tests 07/19/17 07/19/17 07/19/17 06:00 06:00 06:00 WBC 7.4 RBC 4.87 Hgb 15.7 Hct 46.6 MCV 95.7 MCH 32.3 MCHC 33.8 RDW 12.8 Plt Count 218 MPV 9.6 Sodium 141 Potassium 4.2 Chloride 108 H Carbon Dioxide 27 Anion Gap 6 L BUN 13 Creatinine 1.4 H Creat Clearance w eGFR 55.85 Random Glucose 83 Calcium 9.0 Total Bilirubin 0.6 AST 21 D ALT 21 Alkaline Phosphatase 83 Total Protein 7.8 Albumin 3.9 Urine Color Urine Appearance Urine pH Ur Specific [place] Urine Protein Urine Glucose (UA) Urine Ketones Urine Blood Urine Nitrite Urine Bilirubin Urine Urobilinogen Ur Leukocyte Esterase RPR Titer Nonreactive 07/20/17 13:33 WBC RBC Hgb Hct MCV MCH MCHC RDW Plt Count MPV Sodium Potassium Chloride Carbon Dioxide Anion Gap BUN Creatinine Creat Clearance w eGFR Random Glucose Calcium Total Bilirubin AST ALT Alkaline Phosphatase Total Protein Albumin Urine Color Ltyellow Urine Appearance Clear Urine pH 6.0 Ur Specific [place] 1.010 Urine Protein Negative Urine Glucose (UA) Negative Urine Ketones Negative Urine Blood Negative Urine Nitrite Negative Urine Bilirubin Negative Urine Urobilinogen Negative Ur Leukocyte Esterase Negative RPR Titer Assessment: 07/23/17 08:35 MEDICALLY STABLE Plan: D/C PT TODAY TO REHAB
--- NOTE | 2017-07-23 08:38 | DS ---
[facility] Detox Discharge Summary Admission Date: 07/18/17 Discharge Date: 07/23/17 - History Present History: Alcohol Dependence Additional Comments: DETOX COMPLETED. ALERT O X 3. NAD. PT REPORTS PCP/PMD AT [facility] WITH DR. DONNA GARCIA. PT BROUGHT HIS OWN MEDS WITH HIM FOR REHAB. Pertinent Past History: PLEASE SEE DX BELOW - Physical Exam Results Vital Signs: Vital Signs Temperature 96 F L 07/23/17 06:18 Pulse Rate 70 07/23/17 06:18 Respiratory Rate 18 07/23/17 06:30 Blood Pressure 115/72 07/23/17 06:18 O2 Sat by Pulse Oximetry (%) Pertinent Admission Physical Exam Findings: WITHDRAWAL SX Laboratory Tests 07/19/17 07/19/17 07/19/17 06:00 06:00 06:00 WBC 7.4 RBC 4.87 Hgb 15.7 Hct 46.6 MCV 95.7 MCH 32.3 MCHC 33.8 RDW 12.8 Plt Count 218 MPV 9.6 Sodium 141 Potassium 4.2 Chloride 108 H Carbon Dioxide 27 Anion Gap 6 L BUN 13 Creatinine 1.4 H Creat Clearance w eGFR 55.85 Random Glucose 83 Calcium 9.0 Total Bilirubin 0.6 AST 21 D ALT 21 Alkaline Phosphatase 83 Total Protein 7.8 Albumin 3.9 Urine Color Urine Appearance Urine pH Ur Specific [place] Urine Protein Urine Glucose (UA) Urine Ketones Urine Blood Urine Nitrite Urine Bilirubin Urine Urobilinogen Ur Leukocyte Esterase RPR Titer Nonreactive 07/20/17 13:33 WBC RBC Hgb Hct MCV MCH MCHC RDW Plt Count MPV Sodium Potassium Chloride Carbon Dioxide Anion Gap BUN Creatinine Creat Clearance w eGFR Random Glucose Calcium Total Bilirubin AST ALT Alkaline Phosphatase Total Protein Albumin Urine Color Ltyellow Urine Appearance Clear Urine pH 6.0 Ur Specific [place] 1.010 Urine Protein Negative Urine Glucose (UA) Negative Urine Ketones Negative Urine Blood Negative Urine Nitrite Negative Urine Bilirubin Negative Urine Urobilinogen Negative Ur Leukocyte Esterase Negative RPR Titer - Treatment Hospital Course: Detox Protocol Followed, Detoxed Safely, Responded well, Discharged Condition Good, Rehab Referral Accepted Patient has Accepted a Rehab Referral to: [facility] - Medication Discharge Medications: Ambulatory Orders Darunavir Ethanolate [Prezista -] 600 mg PO DAILY 07/16/16 Emtricitabine/Tenofovir [Truvada] 1 tab PO DAILY 07/16/16 Ritonavir [Norvir -] 100 mg PO DAILY 07/16/16 Zolpidem Tartrate [Ambien] 10 mg PO HS 07/18/17 - Diagnosis (1) Alcohol dependence with uncomplicated withdrawal Current Visit: Yes Status: Acute (2) Nicotine dependence Current Visit: Yes Status: Acute Qualifiers: Nicotine product type: cigarettes Substance use status: in withdrawal Qualified Code(s): F17.213 - Nicotine dependence, cigarettes, with withdrawal (3) HIV (human immunodeficiency virus infection) Current Visit: Yes Status: Chronic (4) Weight loss Current Visit: Yes Status: Acute (5) Chronic low back pain Current Visit: Yes Status: Chronic Qualifiers: Back pain laterality: unspecified Sciatica presence: unspecified whether sciatica present Qualified Code(s): M54.5 - Low back pain (6) Peripheral neuropathy Current Visit: Yes Status: Chronic Qualifiers: Peripheral neuropathy type: polyneuropathy, unspecified Qualified Code(s): G62.9 - Polyneuropathy, unspecified - AMA Did Patient Leave Against Medical Advice: No
[2017-07-23 09:28] VITALS: BP 118/72; PULSE 78; TEMP 96.7
[2017-07-23] MEDS: RITONAVIR 100 MG TABLET PO SCH (10:26)
[2017-07-23] MEDS: NICOTINE 21 MG/24 HOURS TOPICAL PATCH TD SCH (10:26)
[2017-07-23] MEDS: DARUNAVIR ETHANOLATE 600 MG TAB PO SCH (10:26)
[2017-07-23] MEDS: EMTRICITABINE 200MG/TENOFOVIR 300MG PO SCH (10:26)
[2017-07-23] MEDS: PRENATAL VITAMINS W/ FOLIC ACID TABLET (FP) PO SCH (10:26)
[2017-07-23] MEDS: ACETAMINOPHEN 325 MG TABLET (FP) PO PRN (10:27)
[2017-07-23] MEDS: PANTOPRAZOLE 40 MG TABLET (FP) PO SCH (10:29)
[2017-07-23] MEDS: NICOTINE POLACRILEX 2 MG GUM BC PRN (12:17)
== END 2017-07-23 12:30 | disposition home or self-care (01) | DRG 774 ==
LOC: YASAS 09:58 → Y3N 13:05
PROVIDERS: ADMIT Internal Medicine; ATTEND Internal Medicine
PROC: HZ2ZZZZ Detoxification Services for Substance Abuse Treatment (ICD-10-PCS; principal; 2017-07-18)
DX: F10.230 Alcohol dependence with withdrawal, uncomplicated (principal); F12.20 Cannabis dependence, uncomplicated; F14.20 Cocaine dependence, uncomplicated; F17.210 Nicotine dependence, cigarettes, uncomplicated; F19.24 Other psychoactive substance dependence with psychoactive substance-induced mood disorder; Z21 Asymptomatic human immunodeficiency virus [HIV] infection status; M54.5 Low back pain; G89.29 Other chronic pain; G62.9 Polyneuropathy, unspecified; G47.00 Insomnia, unspecified; Z87.898 Personal history of other specified conditions
CPT/HCPCS: 36415; 71046-TC-FY; 80053; 81003; 85027; 86593; 93005; 93010

== ENCOUNTER 2018-11-13 15:47 | Inpatient (IN) | payer OTHER ==
[2018-11-13 17:07] VITALS: BMI 26.5
--- NOTE | 2018-11-13 19:14 | HP ---
COWS - Scale Sweatin=Flushed/Facial Moisture CIWA Score Nausea/Vomitin-Mild Nausea/No Vomiting Muscle Tremors: 4-Moderate,w/Arms Extend Anxiety: 2 Agitation: 2 Paroxysmal Sweats: 3 Orientation: 0-Oriented Tacttile Disturbances: 1-Very Mild Itch/Numbness Auditory Disturbances: 0-None Visual Disturbances: 0-None Headache: 0-None Present CIWA-Ar Total Score: 13 - Admission Criteria OASAS Guidelines: Admission for Medically Managed Detox: Requires at least one of the followin. CIWA greater than 12 2. Seizures within the past 24 hours 3. Delirium tremens within the past 24 hours 4. Hallucinations within the past 24 hours 5. Acute intervention needed for co occurring medical disorder 6. Acute intervention needed for co occurring psychiatric disorder 7. Severe withdrawal that cannot be handled at a lower level of care (continued vomiting, continued diarrhea, abnormal vital signs) requiring intravenous medication and/or fluids 8. Admission ROS [facility] Chief Complaint: detox from EtOH Allergies/Adverse Reactions: Allergies Allergy/AdvReac Type Severity Reaction Status Date / Time No Known Drug Allergies Allergy Verified 07/18/17 11:03 olives Allergy Severe Hives Uncoded 07/18/17 11:03 PICKLES Allergy Severe Hives Uncoded 07/18/17 11:03 History of Present Illness: 42M w/ PMH AIDS(undetectable viral load), chronic LBP, insominac(taking Ambien) here for rehab from EtOH, cocaine, crack. This morning, snorted cocaine. Smoked crack in last 3-5d. Cocaine use since early 20s y/o. Drinks 12-18 beers + 1pint liquor daily x1mo. Last drink was ~1030. Drinks regularly since 21yo. Blacked out x3-4. Denies h/o seizures. Last DTs was months prior. Stayed sober x1yr after EtOH rehab in July 2017. Has prescribed percocet(20mg/daily) for chronic LBP since 2016. Last taken 4d prior. Daily MJ use for pain, started at 15y/o. Recently, smoking tobacco 1-2ppd when using cocaine. Ambulates with cane. Does not work, on disability. Lives with mother. - Ebola screening Have you traveled outside of the country in the last 21 days: No (N) Have you had contact with anyone from an Ebola affected area: No Do you have a fever: No - Review of Systems EENT: denies: Blurred Vision, Double Vision, Difficulty Swallowing Respiratory: denies: Cough, Wheezing Cardiac: denies: Chest Pain, Palpitations GI: denies: Constipated, Diarrhea, Nausea, Rectal Bleeding, Vomiting : denies: Dysuria, Frequency Musculoskeletal: reports: Back Pain, Joint Pain (ankles b/l) Neuro: reports: Headache. denies: Numbness, Ataxia, Dizziness Patient History - Patient Medical History Hx Anemia: Yes (lab pending) Hx Asthma: No Hx Chronic Obstructive Pulmonary Disease (COPD): No Hx Cancer: No Hx Cardiac Disorders: No Hx Congestive Heart Failure: No Hx Hypertension: No Hx Hypercholesterolemia: No Hx Pacemaker: No HX Cerebrovascular Accident: No Hx Seizures: No Hx Dementia: No Hx Diabetes: No Hx Gastrointestinal Disorders: No Hx Liver Disease: No Hx Genitourinary Disorders: No Hx Sexually Transmitted Disorders: No Hx Renal Disease (ESRD): No Hx Thyroid Disease: No Hx Human Immunodeficiency Virus (HIV): Yes (Taking medication daily. Last dose today. Has med with him) Hx Hepatitis C: No Hx Depression: Yes Hx Suicide Attempt: No Hx Bipolar Disorder: No Hx Schizophrenia: No - Patient Surgical History Past Surgical History: No Hx Neurologic Surgery: No Hx Cataract Extraction: No Hx Cardiac Surgery: No Hx Lung Surgery: No Hx Breast Surgery: No Hx Breast Biopsy: No Hx Abdominal Surgery: No Hx Appendectomy: No Hx Cholecystectomy: No Hx Genitourinary Surgery: No Hx Section: No Hx Orthopedic Surgery: No Hx Hysterectomy: No Anesthesia Reaction: No - Smoking Cessation Smoking history: Current every day smoker Have you smoked in the past 12 months: Yes Aproximately how many cigarettes per day: 20 Cigars Per Day: 0 Hx Chewing Tobacco Use: No Initiated information on smoking cessation: No - Substance & Tx. History Hx Alcohol Use: Yes Hx Substance Use: Yes (12-18 beers daily + 1pint EtOH) Substance Use Type: Alcohol, Cocaine, Marijuana, Opiates, Prescribed - Substances abused Cocaine Substance route: Inhalation Frequency: Daily Amount used: 1 or 2 gram Age of first use: 20 Date of last use: 11/13/18 Crack Substance route: Smoking Frequency: 3-6 times per week Amount used: 80 to 100 dollars worth Age of first use: 30 Date of last use: 11/13/18 Alcohol Substance route: Oral Frequency: Daily Amount used: 6 packs of beer/ 1 liter hard liqour. Age of first use: 16 Date of last use: 11/13/18 Family Disease History - Family Disease History Family Disease History: CA: Father (, alcoholic ca liver), Other: Father Admission Physical Exam S - Vital Signs Vital Signs: Vital Signs - 24 hr 11/13/18 17:02 Temperature 98.0 F Pulse Rate 79 Respiratory 16 Rate Blood Pressure 145/79 - Physical General Appearance: Yes: Nourished, Irritable, Anxious. No: Alcohol on Breath, Intoxicated HEENTM: No: Pale Conjunctivae R, Pale Conjunctivae L, Scleral Ictenus R, Scleral Ictenus L Respiratory: Yes: Chest Non-Tender, Lungs Clear, No Accessory Muscle Use. No: Accessory Muscle Use, Rhonchi, Stridor, Wheezing Neck: Yes: Supple, Trachea in good position Cardiology: Yes: Regular Rhythm, Regular Rate, S1, S2. No: Bradycardia, Murmur , Tachycardia Abdominal: Yes: Soft. No: Guarding, Rebound, Tenderness Musculoskeletal: Yes: Within Normal Limits, full range of Motion Extremities: Yes: Tremors Neurological: Yes: Fully Oriented, Alert Breathalyzer - Breathalyzer Breathalyzer: 0 Urine Drug Screen - Test Device Lot number: [id number] Expiration date: 08/14/20 - Control Is test valid?: Yes - Results Drug screen NEGATIVE: No Urine drug screen results: THC-Marijuana, BRITTANEY-Cocaine Inpatient Rehab Admission - Rehab Decision to Admit Inpatient rehab admission?: No
--- NOTE | 2018-11-13 19:23 | PN ---
Teaching Attending Note Name of Resident: Dustin Rees ATTENDING PHYSICIAN STATEMENT I saw and evaluated the patient. I reviewed the resident's note and discussed the case with the resident. I agree with the resident's findings and plan as documented. SUBJECTIVE: pt here requesting detox from etoh use , reports 1 pint and 1-3 x 6- pk/day , relapse several weeks ago denies specific incident , current symptoms as above , latest use today , first age of use 21, prior detox at this facility July 2017 . Denies seizures , + blackouts , + tremors if not drinking , starts drinking in the mornings to stop tremors , denies falls while intoxicated . cocaine : " depends how much money I have " 2 gr /day cannabis- daily since age 15 . tobacco : 1-2 ppd . PMHx HIV dx 2010 ( RF = [facility] ) clinic [facility] , chronic LBP, insomnia (taking Ambien) . PSych : denies SI / HI . SHX : unemployed on SSD, lives w/ mother , denies legal issues , does not drive , has 7-yr old dtr w/ bio mother in [place] OBJECTIVE: wnwd , + tremulous , anxious , mild sweating , + ALVAREZ CIWA =13 This report was requested by: Codie Beltran | Reference #: [id number] Others' Prescriptions Patient Name: Yury Segovia Date: 1975 Address: [address] [place] [address] Sex: Male Rx Written Rx Dispensed Drug Quantity Days Supply Prescriber Name 10/26/2018 11/05/2018 zolpidem tartrate 10 mg tablet 30 30 Andreea Khoury MD 10/26/2018 10/26/2018 oxycodone-acetaminophen 10-325 mg tab 75 13 Andreea Khoury MD 09/24/2018 10/07/2018 zolpidem tartrate 10 mg tablet 30 30 Andreea Khoury MD 09/24/2018 09/24/2018 oxycodone-acetaminophen 10-325 mg tab 80 20 Andreea Khoury MD 06/15/2018 09/09/2018 zolpidem tartrate 10 mg tablet 30 30 Andreea Khoury MD 08/26/2018 08/26/2018 oxycodone-acetaminophen 10-325 mg tab 80 20 Andreea Khoury MD 06/15/2018 08/11/2018 zolpidem tartrate 10 mg tablet 30 30 LibertyAndreea MD 07/16/2018 08/03/2018 oxycodone-acetaminophen 10-325 mg tab 80 20 LibertyAndreea kidd MD 06/15/2018 07/13/2018 zolpidem tartrate 10 mg tablet 30 30 PengAndreea kidd MD 06/15/2018 06/16/2018 oxycodone-acetaminophen 10-325 mg tab 120 30 LibertyAndreea MD 06/15/2018 06/15/2018 zolpidem tartrate 10 mg tablet 30 30 LibertyAndreea MD 05/18/2018 05/18/2018 oxycodone-acetaminophen 10-325 mg tab 80 30 PegnAndreea MD 04/21/2018 04/21/2018 oxycodone-acetaminophen 10-325 mg tab 85 30 PengAndreea kidd MD 12/23/2017 04/20/2018 zolpidem tartrate 10 mg tablet 30 30 PengAndreea MD 12/23/2017 03/23/2018 zolpidem tartrate 10 mg tablet 30 30 PengAndreea MD 03/23/2018 03/23/2018 oxycodone-acetaminophen 10-325 mg tab 90 30 PengAndreea kidd MD 12/23/2017 02/23/2018 zolpidem tartrate 10 mg tablet 30 30 LibertyAndreea kidd MD 02/23/2018 02/23/2018 oxycodone-acetaminophen 10-325 mg tab 90 30 PengAndreea kidd MD 02/16/2018 02/16/2018 oxycodone-acetaminophen 10-325 mg tab 21 7 LibertyAndreea kidd MD 01/21/2018 01/21/2018 oxycodone-acetaminophen 10-325 mg tab 90 30 LibertyAndreea kidd MD 12/23/2017 01/13/2018 zolpidem tartrate 10 mg tablet 30 30 LibertyAndreea kidd MD 12/23/2017 12/24/2017 oxycodone-acetaminophen 10-325 mg tab 100 17 Andreea Khoury MD 07/08/2017 12/16/2017 zolpidem tartrate 10 mg tablet 30 30 Andreea Khoury MD 07/08/2017 11/18/2017 zolpidem tartrate 10 mg tablet 30 30 Andreea Khoury MD 11/18/2017 11/18/2017 oxycodone-acetaminophen 10-325 mg tab 150 25 Andreea Khoury MD Vital Signs - 24 hr 11/13/18 17:02 Temperature 98.0 F Pulse Rate 79 Respiratory 16 Rate Blood Pressure 145/79 ASSESSMENT AND PLAN: AUD - Librium taper , d/.w pt agreeable .
[2018-11-13] MEDS ORDERED: IBUPROFEN 400 MG TABLET (FP) PO PRN (19:51)
[2018-11-13] MEDS ORDERED: hydrOXYzine PAMOATE 25 MG CAPSULE (FP) PO PRN (19:51)
[2018-11-13] MEDS ORDERED: chlordiazePOXIDE HCL 25 MG CAPSULE PO PRN (19:51)
[2018-11-13] MEDS ORDERED: MAG HYDROX/AL HYDROX/SIMETH 30 ML UNIT-DOSE CUP PO PRN (19:51)
[2018-11-13] MEDS ORDERED: MAGNESIUM HYDROX 2400MG/30ML ORAL SUSPENSION 30 ML CUP PO PRN (19:51)
[2018-11-13] MEDS ORDERED: MENTHOL/PHENOL 1 EACH UD MM PRN (19:51)
[2018-11-13] MEDS ORDERED: MAGNESIUM CITRATE 300 ML BOTTLE PO PRN (19:51)
[2018-11-13] MEDS ORDERED: NICOTINE POLACRILEX 2 MG GUM BUC PRN (19:51)
[2018-11-13] MEDS ORDERED: METHOCARBAMOL 500 MG TABLET PO PRN (19:51)
[2018-11-13] MEDS ORDERED: BISMUTH SUBSALICYLATE 524 MG/30 ML UD PO PRN (19:51)
[2018-11-13] MEDS ORDERED: ACETAMINOPHEN 325 MG TABLET (FP) PO PRN (19:51)
[2018-11-13] MEDS: THIAMINE HCL 100 MG TABLET (FP) PO SCH (22:06)
[2018-11-13] MEDS: chlordiazePOXIDE HCL 25 MG CAPSULE PO SCH (22:07)
[2018-11-14] MEDS: chlordiazePOXIDE HCL 25 MG CAPSULE PO SCH ×4 (05:12→22:12)
[2018-11-14 09:24] LABS: ALBUMIN 3.8 g/dl (3.4-5.0); BILIRUBIN,TOTAL 0.7 mg/dL (0.2-1); BLOOD UREA NITROGEN 16.8 mg/dL (7-18); CALCIUM 9.2 mg/dL (8.5-10.1); POTASSIUM 4.1 mmol/L (3.5-5.1); TOT PROT 6.9 g/dl (6.4-8.2)
[2018-11-14 09:33] LABS: HEMATOCRIT 46.1 % (35.4-49); HEMOGLOBIN 15.4 GM/dL (11.7-16.9); MCH 31.4 pg (25.7-33.7); MCHC 33.5 g/dl (32.0-35.9); MEAN PLT VOLUME 9.6 fl (7.5-11.1); PLATELET COUNT 204 K/MM3 (134-434); RBC 4.91 M/mm3 (4.00-5.60); RDW 12.7 % (11.9-15.9); WHITE BLOOD COUNT 6.8 K/mm3 (4.0-10.0)
--- NOTE | 2018-11-14 10:19 | CONSULT ---
[facility] Psychiatric Consult - Data Date of interview: 11/14/18 Admission source: [facility] Identifying data: This is one of multiple admissions to [facility] for this 42 y/ o male self-referred for detoxification (alcohol, cocaine, cannabis). Examined at [address] [place] [address]. Patient is single without children, domiciled, unemployed and supported on SSI benefits. Substance Abuse History: Confirmed by patient in this interview. Details in current [facility] report as follows : Smoking history: Current every day smoker. Have you smoked in the past 12 months: Yes. Aproximately how many cigarettes per day: 20. Cigars Per Day: 0. Hx Chewing Tobacco Use: No. Initiated information on smoking cessation: No. - Substance & Tx. History. Hx Alcohol Use: Yes. Hx Substance Use: Yes (12-18 beers daily + 1pint EtOH). Substance Use Type: Alcohol, Cocaine, Marijuana, Opiates, Prescribed. - Substances abused. Cocaine. Substance route: Inhalation. Frequency: Daily. Amount used: 1 or 2 gram. Age of first use: 20. Date of last use: 11/13/18. Crack. Substance route: Smoking. Frequency: 3-6 times per week. Amount used: 80 to 100 dollars worth. Age of first use: 30. Date of last use: 11/13/18. * * Alcohol. Substance route: Oral. Frequency: Daily. Amount used: 6 packs of beer/ 1 liter hard liqour. Age of first use: 16. Date of last use: 11/13/18 Medical History: Medical profile is remarkable for anemia, HIV infection since 2006 (on HAART medications), peripheral Neuropathy, positive PPD and a history of chronic lumbar pain (herniated disc). Psychiatric History: Patient denies history of psychiatric hospitalizations or suicide attempts. Physical/Sexual Abuse/Trauma History: Patient denies. Additional Comment: Urine drug screen results: THC-Marijuana, BRITTANEY-Cocaine. Noted. Mental Status Exam - Mental Status Exam Alert and Oriented to: Time, Place, Person Cognitive Function: Good Patient Appearance: Well Groomed Mood: Nervous, Withdrawn Affect: Appropriate, Normal Range Patient Behavior: Fatigued, Appropriate, Cooperative Speech Pattern: Clear Voice Loudness: Normal Thought Process: Intact, Goal Oriented Thought Disorder: Not Present Hallucinations: Denies Suicidal Ideation: Denies Homicidal Ideation: Denies Insight/Judgement: Poor Sleep: Poorly, Difficulty falling asleep Appetite: Good Muscle strength/Tone: Normal Gait/Station: Normal Psychiatric Findings - Problem List ([place] 1, 2,3) (1) Alcohol dependence with uncomplicated withdrawal Current Visit: Yes Status: Acute (2) Cannabis dependence Current Visit: Yes Status: Chronic (3) Cocaine dependence Current Visit: Yes Status: Chronic Qualifiers: Substance use status: uncomplicated Qualified Code(s): F14.20 - Cocaine dependence, uncomplicated (4) Nicotine dependence Current Visit: Yes Status: Chronic Qualifiers: Nicotine product type: cigarettes Substance use status: in withdrawal Qualified Code(s): F17.213 - Nicotine dependence, cigarettes, with withdrawal (5) Substance induced mood disorder Current Visit: Yes Status: Chronic (6) Insomnia Current Visit: Yes Status: Chronic - Initial Treatment Plan Initial Treatment Plan: Psychoeducation. Detoxification. Relapse prevention (MAT ) discussed with the patient. Support. Sleep hygiene. Groups. AA/NA meetings. seroquel 50 mg po hs. Ordered. Side effects/benefits are discussed with the patient. Consent (verbal) granted to MD. Chaves.
[2018-11-14] MEDS: PRENATAL VITAMINS W/ FOLIC ACID TABLET (FP) PO SCH (10:33)
[2018-11-14] MEDS: SYMTUZA PO SCH (10:40)
--- NOTE | 2018-11-14 14:58 | PN ---
S CIWA - CIWA Score Nausea/Vomitin-No Nausea/No Vomiting Muscle Tremors: 4-Moderate,w/Arms Extend Anxiety: 4-Mod. Anxious/Guarded Agitation: 4-Moderately Restless Paroxysmal Sweats: 1-Minimal Palms Moist Orientation: 0-Oriented Tacttile Disturbances: 0-None Auditory Disturbances: 0-None Visual Disturbances: 0-None Headache: 0-None Present CIWA-Ar Total Score: 13 BHS Progress Note (SOAP) Subjective: c/o slight anxiety, tremors. Reports Librium effective and slept well last night. Objective: 11/14/18 14:57 Vital Signs - 24 hr 11/13/18 11/13/18 11/14/18 17:02 21:31 00:30 Temperature 98.0 F 97.7 F Pulse Rate 79 71 Respiratory 16 18 18 Rate Blood Pressure 145/79 132/88 11/14/18 11/14/18 11/14/18 03:30 06:02 09:10 Temperature 97.2 F L 98.0 F Pulse Rate 57 L 88 Respiratory 18 18 18 Rate Blood Pressure 114/70 121/77 11/14/18 13:39 Temperature 97.3 F L Pulse Rate 67 Respiratory 20 Rate Blood Pressure 130/75 Laboratory Tests 11/14/18 11/14/18 11/14/18 07:30 07:30 07:30 WBC 6.8 RBC 4.91 Hgb 15.4 Hct 46.1 MCV 94.0 MCH 31.4 MCHC 33.5 RDW 12.7 Plt Count 204 MPV 9.6 Sodium 142 Potassium 4.1 Chloride 108 H Carbon Dioxide 26 Anion Gap 7 L BUN 16.8 Creatinine 1.0 Est GFR (CKD-EPI)AfAm 107.12 Est GFR (CKD-EPI)NonAf 92.42 Random Glucose 91 Calcium 9.2 Total Bilirubin 0.7 AST 18 ALT 22 Alkaline Phosphatase 80 Total Protein 6.9 Albumin 3.8 RPR Titer Nonreactive Assessment: 11/14/18 14:57 withdrawal sx nad Plan: continue detox librium taper increase po fluids.
[2018-11-14] MEDS: THIAMINE HCL 100 MG TABLET (FP) PO SCH (22:12)
[2018-11-14] MEDS: QUEtiapine FUMARATE 50 MG TABLET PO SCH (22:12)
[2018-11-15] MEDS: chlordiazePOXIDE HCL 25 MG CAPSULE PO SCH ×4 (05:59→22:08)
[2018-11-15] MEDS: SYMTUZA PO SCH (10:19)
[2018-11-15] MEDS: PRENATAL VITAMINS W/ FOLIC ACID TABLET (FP) PO SCH (10:19)
--- NOTE | 2018-11-15 12:10 | PN ---
[facility] CIWA - CIWA Score Nausea/Vomitin-Mild Nausea/No Vomiting Muscle Tremors: 3 Anxiety: 1-Mildly Anxious Agitation: 3 Paroxysmal Sweats: 1-Minimal Palms Moist Orientation: 0-Oriented Tacttile Disturbances: 0-None Auditory Disturbances: 0-None Visual Disturbances: 0-None Headache: 0-None Present CIWA-Ar Total Score: 9 S Progress Note (SOAP) Subjective: 42 years old male forth patient [facility] admission since 2017 was admitted on 11/13/18 for alcohol withdrawal sx management doing well with librium detox regimen resting on bed comfortable "tired" prefers to stay in bed today encourage the patient to ventilate feeling and concerns Objective: 11/15/18 12:12 Vital Signs Temperature 97.1 F L 11/15/18 09:48 Pulse Rate 81 11/15/18 09:48 Respiratory Rate 18 11/15/18 09:48 Blood Pressure 129/74 11/15/18 09:48 O2 Sat by Pulse Oximetry (%) Laboratory Last Values WBC 6.8 K/mm3 (4.0-10.0) 11/14/18 07:30 RBC 4.91 M/mm3 (4.00-5.60) 11/14/18 07:30 Hgb 15.4 GM/dL (11.7-16.9) 11/14/18 07:30 Hct 46.1 % (35.4-49) 11/14/18 07:30 MCV 94.0 fl (80-96) 11/14/18 07:30 MCH 31.4 pg (25.7-33.7) 11/14/18 07:30 MCHC 33.5 g/dl (32.0-35.9) 11/14/18 07:30 RDW 12.7 % (11.9-15.9) 11/14/18 07:30 Plt Count 204 K/MM3 (134-434) 11/14/18 07:30 MPV 9.6 fl (7.5-11.1) 11/14/18 07:30 Sodium 142 mmol/L (136-145) 11/14/18 07:30 Potassium 4.1 mmol/L (3.5-5.1) 11/14/18 07:30 Chloride 108 mmol/L (98-107) H 11/14/18 07:30 Carbon Dioxide 26 mmol/L (21-32) 11/14/18 07:30 Anion Gap 7 MMOL/L (8-16) L 11/14/18 07:30 BUN 16.8 mg/dL (7-18) 11/14/18 07:30 Creatinine 1.0 mg/dL (0.55-1.3) 11/14/18 07:30 Est GFR (CKD-EPI)AfAm 107.12 11/14/18 07:30 Est GFR (CKD-EPI)NonAf 92.42 11/14/18 07:30 Random Glucose 91 mg/dL (74-106) 11/14/18 07:30 Calcium 9.2 mg/dL (8.5-10.1) 11/14/18 07:30 Total Bilirubin 0.7 mg/dL (0.2-1) 11/14/18 07:30 AST 18 U/L (15-37) 11/14/18 07:30 ALT 22 U/L (13-61) 11/14/18 07:30 Alkaline Phosphatase 80 U/L (45-117) 11/14/18 07:30 Total Protein 6.9 g/dl (6.4-8.2) 11/14/18 07:30 Albumin 3.8 g/dl (3.4-5.0) 11/14/18 07:30 RPR Titer Nonreactive (NONREACTIVE) 11/14/18 07:30 lab noted Assessment: 11/15/18 12:13 alcohol withdrawal sx alert oriented x 3 ambulating from bed to bathroom steady gait Plan: continue libirum detox regimen
[2018-11-15] MEDS: QUEtiapine FUMARATE 50 MG TABLET PO SCH (22:08)
[2018-11-15] MEDS: MELATONIN 5 MG TABLETS PO PRN (22:08)
[2018-11-15] MEDS: THIAMINE HCL 100 MG TABLET (FP) PO SCH (22:08)
[2018-11-16] MEDS ORDERED: chlordiazePOXIDE HCL 10 MG CAPSULE PO PRN
[2018-11-16] MEDS: chlordiazePOXIDE HCL 10 MG CAPSULE PO SCH ×4 (05:55→22:17)
[2018-11-16] MEDS: PRENATAL VITAMINS W/ FOLIC ACID TABLET (FP) PO SCH (10:03)
[2018-11-16] MEDS: SYMTUZA PO SCH (10:04)
--- NOTE | 2018-11-16 10:51 | PN ---
S CIWA - CIWA Score Nausea/Vomitin-No Nausea/No Vomiting Muscle Tremors: 2 Anxiety: 2 Agitation: 2 Paroxysmal Sweats: 1-Minimal Palms Moist Orientation: 0-Oriented Tacttile Disturbances: 0-None Auditory Disturbances: 0-None Visual Disturbances: 0-None Headache: 0-None Present CIWA-Ar Total Score: 7 S Progress Note (SOAP) Subjective: 42 years old male admitted on 11/13/18 for alcohol withdrawal sx management doing well with libirum detox regimen sleep better at night social with peers in day room patient prefers to go to [facility] for alcohol sobriety recovery Objective: 11/16/18 10:52 Vital Signs Temperature 99.4 F 11/16/18 09:15 Pulse Rate 90 11/16/18 09:15 Respiratory Rate 18 11/16/18 09:15 Blood Pressure 120/75 11/16/18 09:15 O2 Sat by Pulse Oximetry (%) Laboratory Last Values WBC 6.8 K/mm3 (4.0-10.0) 11/14/18 07:30 RBC 4.91 M/mm3 (4.00-5.60) 11/14/18 07:30 Hgb 15.4 GM/dL (11.7-16.9) 11/14/18 07:30 Hct 46.1 % (35.4-49) 11/14/18 07:30 MCV 94.0 fl (80-96) 11/14/18 07:30 MCH 31.4 pg (25.7-33.7) 11/14/18 07:30 MCHC 33.5 g/dl (32.0-35.9) 11/14/18 07:30 RDW 12.7 % (11.9-15.9) 11/14/18 07:30 Plt Count 204 K/MM3 (134-434) 11/14/18 07:30 MPV 9.6 fl (7.5-11.1) 11/14/18 07:30 Sodium 142 mmol/L (136-145) 11/14/18 07:30 Potassium 4.1 mmol/L (3.5-5.1) 11/14/18 07:30 Chloride 108 mmol/L (98-107) H 11/14/18 07:30 Carbon Dioxide 26 mmol/L (21-32) 11/14/18 07:30 Anion Gap 7 MMOL/L (8-16) L 11/14/18 07:30 BUN 16.8 mg/dL (7-18) 11/14/18 07:30 Creatinine 1.0 mg/dL (0.55-1.3) 11/14/18 07:30 Est GFR (CKD-EPI)AfAm 107.12 11/14/18 07:30 Est GFR (CKD-EPI)NonAf 92.42 11/14/18 07:30 Random Glucose 91 mg/dL (74-106) 11/14/18 07:30 Calcium 9.2 mg/dL (8.5-10.1) 11/14/18 07:30 Total Bilirubin 0.7 mg/dL (0.2-1) 11/14/18 07:30 AST 18 U/L (15-37) 11/14/18 07:30 ALT 22 U/L (13-61) 11/14/18 07:30 Alkaline Phosphatase 80 U/L (45-117) 11/14/18 07:30 Total Protein 6.9 g/dl (6.4-8.2) 11/14/18 07:30 Albumin 3.8 g/dl (3.4-5.0) 11/14/18 07:30 RPR Titer Nonreactive (NONREACTIVE) 11/14/18 07:30 lab noted Assessment: 11/16/18 10:53 alcohol withdrawal sx alert oriented x 3 Plan: continue librum detox regimen
[2018-11-16] MEDS: ACETAMINOPHEN 325 MG TABLET (FP) PO PRN (16:47)
[2018-11-16] MEDS: QUEtiapine FUMARATE 50 MG TABLET PO SCH (22:17)
[2018-11-16] MEDS: THIAMINE HCL 100 MG TABLET (FP) PO SCH (22:17)
[2018-11-16] MEDS: MELATONIN 5 MG TABLETS PO PRN (22:18)
[2018-11-17] MEDS: chlordiazePOXIDE HCL 10 MG CAPSULE PO SCH ×2 (05:04→17:22)
[2018-11-17] MEDS: SYMTUZA PO SCH (10:03)
[2018-11-17] MEDS: PRENATAL VITAMINS W/ FOLIC ACID TABLET (FP) PO SCH (10:03)
--- NOTE | 2018-11-17 11:47 | PN ---
S CIWA - CIWA Score Nausea/Vomitin-No Nausea/No Vomiting Muscle Tremors: 1-None Visible, but [place] Anxiety: 2 Agitation: 1-Slight > Activity Paroxysmal Sweats: No Perspiration Orientation: 0-Oriented Tacttile Disturbances: 0-None Auditory Disturbances: 0-None Visual Disturbances: 0-None Headache: 0-None Present CIWA-Ar Total Score: 4 BHS Progress Note (SOAP) Subjective: 42 years old male 4th patient [facility] since 2018 was admitted on 11/13/18 for alcohol withdrawal sx management doing well with librium detox regimen less tremor tolerate food and fluid well Objective: 11/17/18 11:49 Vital Signs Temperature 98.6 F 11/17/18 09:18 Pulse Rate 88 11/17/18 09:18 Respiratory Rate 16 11/17/18 09:18 Blood Pressure 126/75 11/17/18 09:18 O2 Sat by Pulse Oximetry (%) Laboratory Last Values WBC 6.8 K/mm3 (4.0-10.0) 11/14/18 07:30 RBC 4.91 M/mm3 (4.00-5.60) 11/14/18 07:30 Hgb 15.4 GM/dL (11.7-16.9) 11/14/18 07:30 Hct 46.1 % (35.4-49) 11/14/18 07:30 MCV 94.0 fl (80-96) 11/14/18 07:30 MCH 31.4 pg (25.7-33.7) 11/14/18 07:30 MCHC 33.5 g/dl (32.0-35.9) 11/14/18 07:30 RDW 12.7 % (11.9-15.9) 11/14/18 07:30 Plt Count 204 K/MM3 (134-434) 11/14/18 07:30 MPV 9.6 fl (7.5-11.1) 11/14/18 07:30 Sodium 142 mmol/L (136-145) 11/14/18 07:30 Potassium 4.1 mmol/L (3.5-5.1) 11/14/18 07:30 Chloride 108 mmol/L (98-107) H 11/14/18 07:30 Carbon Dioxide 26 mmol/L (21-32) 11/14/18 07:30 Anion Gap 7 MMOL/L (8-16) L 11/14/18 07:30 BUN 16.8 mg/dL (7-18) 11/14/18 07:30 Creatinine 1.0 mg/dL (0.55-1.3) 11/14/18 07:30 Est GFR (CKD-EPI)AfAm 107.12 11/14/18 07:30 Est GFR (CKD-EPI)NonAf 92.42 11/14/18 07:30 Random Glucose 91 mg/dL (74-106) 11/14/18 07:30 Calcium 9.2 mg/dL (8.5-10.1) 11/14/18 07:30 Total Bilirubin 0.7 mg/dL (0.2-1) 11/14/18 07:30 AST 18 U/L (15-37) 11/14/18 07:30 ALT 22 U/L (13-61) 11/14/18 07:30 Alkaline Phosphatase 80 U/L (45-117) 11/14/18 07:30 Total Protein 6.9 g/dl (6.4-8.2) 11/14/18 07:30 Albumin 3.8 g/dl (3.4-5.0) 11/14/18 07:30 RPR Titer Nonreactive (NONREACTIVE) 11/14/18 07:30 lab noted Assessment: 11/17/18 11:49 alcohol withdrawal sx alert 11/17/18 11:50 S1S2 regular rate rhythm respiratory no wheezing on auscultatin abdomen soft Plan: continue libirum detox regimen
[2018-11-17] MEDS: ACETAMINOPHEN 325 MG TABLET (FP) PO PRN (17:23)
[2018-11-17] MEDS: QUEtiapine FUMARATE 50 MG TABLET PO SCH (22:08)
[2018-11-17] MEDS: THIAMINE HCL 100 MG TABLET (FP) PO SCH (22:08)
[2018-11-18] MEDS ORDERED: chlordiazePOXIDE HCL 10 MG CAPSULE PO ONE (05:00)
[2018-11-18 06:43] VITALS: BP 121/84; PULSE 92; TEMP 97.4
--- NOTE | 2018-11-18 13:34 | DS ---
[facility] Detox Discharge Summary Admission Date: 11/13/18 Discharge Date: 11/18/18 - History Present History: Alcohol Dependence Additional Comments: 42 years old male 4th patient [facility] admission was admitted on 11/13/18 for alcohol withdrawal sx management doing well with libirum detox regimen no complication through out the detox regimen seen by psychiatrist begin seroqual 50 mg po hs alert oriented x 3 cardiac S1S2 regular rate rhythm respiratory clear lung bilaterally on auscultation abdomen soft no rebound tenderness Pertinent Past History: hiv - Physical Exam Results Vital Signs: Vital Signs Temperature 97.4 F L 11/18/18 06:43 Pulse Rate 92 H 11/18/18 06:43 Respiratory Rate 18 11/18/18 06:43 Blood Pressure 121/84 11/18/18 06:43 O2 Sat by Pulse Oximetry (%) Pertinent Admission Physical Exam Findings: alcohol withdrawal sx Laboratory Last Values WBC 6.8 K/mm3 (4.0-10.0) 11/14/18 07:30 RBC 4.91 M/mm3 (4.00-5.60) 11/14/18 07:30 Hgb 15.4 GM/dL (11.7-16.9) 11/14/18 07:30 Hct 46.1 % (35.4-49) 11/14/18 07:30 MCV 94.0 fl (80-96) 11/14/18 07:30 MCH 31.4 pg (25.7-33.7) 11/14/18 07:30 MCHC 33.5 g/dl (32.0-35.9) 11/14/18 07:30 RDW 12.7 % (11.9-15.9) 11/14/18 07:30 Plt Count 204 K/MM3 (134-434) 11/14/18 07:30 MPV 9.6 fl (7.5-11.1) 11/14/18 07:30 Sodium 142 mmol/L (136-145) 11/14/18 07:30 Potassium 4.1 mmol/L (3.5-5.1) 11/14/18 07:30 Chloride 108 mmol/L (98-107) H 11/14/18 07:30 Carbon Dioxide 26 mmol/L (21-32) 11/14/18 07:30 Anion Gap 7 MMOL/L (8-16) L 11/14/18 07:30 BUN 16.8 mg/dL (7-18) 11/14/18 07:30 Creatinine 1.0 mg/dL (0.55-1.3) 11/14/18 07:30 Est GFR (CKD-EPI)AfAm 107.12 11/14/18 07:30 Est GFR (CKD-EPI)NonAf 92.42 11/14/18 07:30 Random Glucose 91 mg/dL (74-106) 11/14/18 07:30 Calcium 9.2 mg/dL (8.5-10.1) 11/14/18 07:30 Total Bilirubin 0.7 mg/dL (0.2-1) 11/14/18 07:30 AST 18 U/L (15-37) 11/14/18 07:30 ALT 22 U/L (13-61) 11/14/18 07:30 Alkaline Phosphatase 80 U/L (45-117) 11/14/18 07:30 Total Protein 6.9 g/dl (6.4-8.2) 11/14/18 07:30 Albumin 3.8 g/dl (3.4-5.0) 11/14/18 07:30 RPR Titer Nonreactive (NONREACTIVE) 11/14/18 07:30 lab noted patient agrees to bring in lab report and medication list to infectious disease specialist - Treatment Hospital Course: Detox Protocol Followed, Detoxed Safely, Responded well, Discharged Condition Good, Rehab Referral Accepted Patient has Accepted a Re[facility] Referral to: [facility] - Medication Discharge Medications: Ambulatory Orders Zolpidem Tartrate [Ambien] 10 mg PO HS 07/18/17 Symtuza [id number] mg Tab 1 tablet PO DAILY 11/13/18 - Diagnosis (1) Alcohol dependence with uncomplicated withdrawal Status: Acute (2) HIV (human immunodeficiency virus infection) Status: Chronic Qualifiers: HIV symptom status: asymptomatic Qualified Code(s): Z21 - Asymptomatic human immunodeficiency virus [HIV] infection status (3) Nicotine dependence Status: Acute Qualifiers: Nicotine product type: cigarettes Substance use status: in withdrawal Qualified Code(s): F17.213 - Nicotine dependence, cigarettes, with withdrawal - AMA Did Patient Leave Against Medical Advice: No CIWA Score - CIWA Score Nausea/Vomitin-No Nausea/No Vomiting Muscle Tremors: None Anxiety: 1-Mildly Anxious Agitation: 0-Normal Activity Paroxysmal Sweats: No Perspiration Orientation: 0-Oriented Tacttile Disturbances: 0-None Auditory Disturbances: 0-None Visual Disturbances: 0-None Headache: 0-None Present CIWA-Ar Total Score: 1
== END 2018-11-18 08:44 | disposition home or self-care (01) | DRG 774 ==
LOC: YASAS 15:47 → Y3N 20:22
PROVIDERS: ADMIT Surgery; ATTEND Surgery
PROC: HZ2ZZZZ Detoxification Services for Substance Abuse Treatment (ICD-10-PCS; principal; 2018-11-13)
DX: F10.230 Alcohol dependence with withdrawal, uncomplicated (principal); F14.20 Cocaine dependence, uncomplicated; F12.20 Cannabis dependence, uncomplicated; F19.24 Other psychoactive substance dependence with psychoactive substance-induced mood disorder; F17.213 Nicotine dependence, cigarettes, with withdrawal; Z21 Asymptomatic human immunodeficiency virus [HIV] infection status; G47.00 Insomnia, unspecified
CPT/HCPCS: 36415; 80053; 85027; 86480; 86593